=== PATIENT | female | born 1965 | race Caucasian/White ===

== ENCOUNTER 2021-11-14 20:19 | Observation (INO) | payer MEDICARE, OTHER ==
[2021-11-14] MEDS ORDERED: HumaLOG 300 UNITS/3 ML VIAL SC PRN ×4 (21:11→21:39)
[2021-11-14] MEDS ORDERED: Dextrose 5% in Water 1,000 ML IV PRN (21:11)
[2021-11-14] MEDS ORDERED: Dextrose 50% Abboject 50 ML SYRINGE SLOW IVP PRN (21:11)
[2021-11-14] MEDS ORDERED: hydrALAZINE 20 MG/ML VIAL SLOW IVP PRN (21:34)
[2021-11-14 22:42] LABS: Hemoglobin A1c 11.8 % (4.0-6.0)
[2021-11-15 00:01] LABS: Bacteria/HPF None Seen HPF (None Seen); Bilirubin Negative (Negative); Blood, Urine Trace (Negative); Clarity Clear (Clear); Glucose, Urine (Dipstick) >=1000 mg/dL (Negative); Ketone, Urine Negative (Negative); Leukocyte Negative Leu/uL (Negative); Nitrite Negative (Negative); Protein, Urine (Dipstick) 300 mg/dL (Neg-Trace); Squamous Epithelial None Seen HPF (0-3); Urobilinogen Normal mg/dL (Less than 2)
[2021-11-15 00:03] LABS: RBC/HPF 0-3 HPF (0-3)
[2021-11-15 00:27] LABS: Creatinine, Urine 33.61 mg/dL (47-110)
[2021-11-15 00:32] LABS: Microalbumin Urine Greater than 200.0 mg/dL (0.5-50.0)
[2021-11-15] MEDS: Acetaminophen 325 MG TAB PO PRN ×3 (02:12→13:47)
[2021-11-15 04:37] LABS: #Basophils 0.1 thou/uL (0.0-0.2); #Eosinphils 0.5 thou/uL (0.0-0.7); #Lymphocytes 1.4 thou/uL (1.20-3.40); #Monocytes 0.7 thou/uL (0.11-0.59); #Neutrophils 4.1 thou/uL (1.40-6.50); %Basophils 0.8 % (0.0-1.0); %Eosinophils 6.9 % (0.0-10.0); %Lymphocytes 20.5 % (21.0-51.0); %Monocytes 10.2 % (0.0-10.0); %Neutrophils 61.6 % (42.0-75.0); Mean Corpuscular HGB CONC 33.4 g/dL (32.0-36.0); Mean Corpuscular Hemoglobin 31.6 pg (27.0-31.0); Mean Corpuscular Volume 94.8 fL (78.0-98.0); Platelet Count 329 thou/uL (130-400); RBC Distribution Width 14.9 % (11.5-14.5); Red Blood Cell (RBC) Count 2.84 mill/uL (4.20-5.40); White Blood Cell (WBC) Count 6.6 thou/uL (4.8-10.8)
[2021-11-15 05:07] LABS: ALT (SGPT) 25 U/L (8-55); AST (SGOT) 26 U/L (5-34); Alkaline Phosphatase 368 U/L (40-110); Anion Gap 9 mmol/L (10-20); BUN (Urea Nitrogen) 22 mg/dL (9.8-20.1); Bilirubin, Total Less than 0.2 mg/dL (0.2-1.2); Calc. Creatinine Clearance 48 mL/min (70-130); Calcium 8.1 mg/dL (7.8-10.44); Carbon Dioxide 22 mmol/L (22-29); Chloride 111 mmol/L (98-107); Globulin 3.1 g/dL (2.4-3.5); Glucose 216 mg/dL (70-105); Potassium 3.7 mmol/L (3.5-5.1); Protein, Total 5.1 g/dL (6.0-8.3); Sodium 138 mmol/L (136-145)
[2021-11-15 07:01] LABS: Cardiac Risk 5.6 (Less than 4.5)
[2021-11-15] MEDS ORDERED: ADENOSINE 60 MG/20 ML VIAL ONE (08:29)
[2021-11-15] MEDS ORDERED: Enoxaparin Sodium 40 MG/0.4 ML SYRINGE SC SCH (09:00)
[2021-11-15 12:45] VITALS: BMI 26.4
[2021-11-15 13:59] VITALS: TEMP 97.3
[2021-11-15] MEDS ORDERED: Amlodipine 5 MG TAB PO SCH (14:00)
[2021-11-15 14:21] VITALS: BP 184/85
[2021-11-15 15:04] LABS: Iron 51 ug/dL (50-170); Iron Binding Capacity, Total 198 mcg/dL (265-497)
[2021-11-15 15:29] LABS: Ferritin 382.3 ng/mL (10-291)
[2021-11-15] MEDS ORDERED: Metoprolol Tartrate 50 MG TAB PO SCH (21:00)
== END 2021-11-15 16:20 | disposition home or self-care (01) ==
LOC: 2NO 20:22
PROVIDERS: ADMIT Family Medicine; ATTEND Family Medicine
DX: R07.89 Other chest pain (principal); R60.0 Localized edema; I12.9 Hypertensive chronic kidney disease with stage 1 through stage 4 chronic kidney disease, or unspecified chronic kidney disease; E11.22 Type 2 diabetes mellitus with diabetic chronic kidney disease; N18.32 Chronic kidney disease, stage 3b; D63.1 Anemia in chronic kidney disease; E78.5 Hyperlipidemia, unspecified; N28.1 Cyst of kidney, acquired; D18.03 Hemangioma of intra-abdominal structures; R30.0 Dysuria; R35.0 Frequency of micturition; E11.65 Type 2 diabetes mellitus with hyperglycemia; M41.9 Scoliosis, unspecified; I07.1 Rheumatic tricuspid insufficiency; Z79.2 Long term (current) use of antibiotics; Z79.82 Long term (current) use of aspirin; Z79.84 Long term (current) use of oral hypoglycemic drugs; Z79.899 Other long term (current) drug therapy
CPT/HCPCS: 78452; 80053; 80061; 82043; 82607; 82728; 82746; 82962 ×2; 83036; 83540; 83550; 84443; 85025; 87086; 93017; 93306; 93970; 96372; 96374; A9500; G0378 ×2; 36415; 36416; 81003; 81015; J0153; J0360; J1650

== ENCOUNTER 2022-05-15 19:09 | Inpatient (IN) | payer OTHER ==
[2022-05-15] MEDS ORDERED: Cyclobenzaprine 10 MG TAB PO PRN (20:58)
[2022-05-15] MEDS ORDERED: traMADol HCl 50 MG TAB PO PRN (20:58)
[2022-05-15] MEDS ORDERED: Promethazine HCl 25 MG/ML VIAL IM PRN (21:34)
[2022-05-15] MEDS ORDERED: Dextrose 50% Abboject 50 ML SYRINGE SLOW IVP PRN ×2 (21:34→23:03)
[2022-05-15] MEDS ORDERED: Morphine 2 MG/ML VIAL SLOW IVP PRN (21:34)
[2022-05-15] MEDS ORDERED: Dextrose 5% in Water 1,000 ML IV PRN ×2 (21:34→23:03)
[2022-05-15] MEDS: Gabapentin 300 MG CAP PO SCH (22:11)
[2022-05-15 22:24] VITALS: BMI 24.2
[2022-05-15] MEDS ORDERED: traMADol HCl 50 MG TAB PO SCH ×2 (23:15→23:59)
[2022-05-15] MEDS ORDERED: hydrALAZINE 20 MG/ML VIAL SLOW IVP SCH (23:15)
[2022-05-15] MEDS: traMADol HCl 50 MG TAB PO SCH (23:54)
[2022-05-15] MEDS: Acetaminophen 500 MG TAB PO SCH (23:55)
[2022-05-15] MEDS ORDERED: hydrALAZINE 20 MG/ML VIAL SLOW IVP PRN (23:56)
[2022-05-16] MEDS ORDERED: Amlodipine 10 MG TAB PO SCH (00:15)
[2022-05-16] MEDS ORDERED: Furosemide 20 MG/2 ML VIAL SLOW IVP SCH (00:15)
[2022-05-16 01:48] LABS: Bacteria/HPF None Seen HPF (None Seen); Bilirubin Negative (Negative); Blood, Urine 1+ (Negative); Clarity Clear (Clear); Glucose, Urine (Dipstick) 500 mg/dL (Negative); Ketone, Urine Negative (Negative); Leukocyte Negative Leu/uL (Negative); Nitrite Negative (Negative); Protein, Urine (Dipstick) 300 mg/dL (Neg-Trace); RBC/HPF 0-3 HPF (0-3); Specific Gravity, Urine 1.012 (1.002-1.036); Squamous Epithelial None Seen HPF (0-3); Urobilinogen Normal mg/dL (Less than 2); WBC/HPF 0-3 HPF (0-3); pH, Urine 6.5 (5.0-9.0)
[2022-05-16 01:51] LABS: Urine Culture Reflex No No
[2022-05-16 05:38] LABS: #Basophils 0.1 thou/uL (0.0-0.2); #Eosinphils 0.2 thou/uL (0.0-0.7); #Lymphocytes 1.5 thou/uL (1.20-3.40); #Monocytes 0.7 thou/uL (0.11-0.59); #Neutrophils 5.3 thou/uL (1.40-6.50); %Basophils 0.8 % (0.0-1.0); %Eosinophils 2.8 % (0.0-10.0); %Lymphocytes 19.7 % (21.0-51.0); %Monocytes 9.1 % (0.0-10.0); %Neutrophils 67.5 % (42.0-75.0); Hemoglobin 9.8 g/dL (12.0-16.0); Mean Corpuscular HGB CONC 33.5 g/dL (32.0-36.0); Mean Corpuscular Hemoglobin 32.1 pg (27.0-31.0); Mean Corpuscular Volume 95.8 fL (78.0-98.0); Mean Platelet Volume 8.7 fL (7.4-10.4); Platelet Count 307 thou/uL (130-400); RBC Distribution Width 15.8 % (11.5-14.5); Red Blood Cell (RBC) Count 3.05 mill/uL (4.20-5.40); White Blood Cell (WBC) Count 7.8 thou/uL (4.8-10.8)
[2022-05-16 05:47] LABS: Anion Gap 13 mmol/L (10-20); BUN (Urea Nitrogen) 41 mg/dL (9.8-20.1); Calc. Creatinine Clearance 29 mL/min (70-130); Calcium 7.8 mg/dL (7.8-10.44); Carbon Dioxide 18 mmol/L (22-29); Chloride 110 mmol/L (98-107); Estimated GFR 27; Glucose 152 mg/dL (70-105); Phosphorus 4.6 mg/dL (2.3-4.7); Potassium 3.9 mmol/L (3.5-5.1); Sodium 137 mmol/L (136-145)
[2022-05-16] MEDS: Acetaminophen 500 MG TAB PO SCH ×3 (05:51→17:17)
[2022-05-16] MEDS: traMADol HCl 50 MG TAB PO SCH ×3 (05:52→21:08)
[2022-05-16] MEDS: Metoprolol Tartrate 50 MG TAB PO SCH ×2 (08:02→21:08)
[2022-05-16] MEDS: Furosemide 20 MG TAB PO SCH ×2 (08:02→21:07)
[2022-05-16] MEDS: Senokot S 8.6-50 MG TAB PO SCH ×2 (08:02→21:08)
[2022-05-16] MEDS: Gabapentin 300 MG CAP PO SCH (08:02)
[2022-05-16] MEDS: Ascorbic Acid 500 mg Chewable Tablet PO SCH ×2 (08:02→21:07)
[2022-05-16] MEDS: Ferrous Sulfate 325 MG TAB PO SCH ×2 (08:02→17:17)
[2022-05-16] MEDS: Polyethylene Glycol 3350 17 GM Packet PO SCH (08:03)
[2022-05-16] MEDS: Pantoprazole 40 MG VIAL IVP SCH (08:03)
[2022-05-16] MEDS ORDERED: Lisinopril 5 MG TAB PO SCH (09:00)
[2022-05-16] MEDS ORDERED: Amlodipine 5 MG TAB PO SCH (09:00)
[2022-05-16] MEDS ORDERED: Famotidine 20 MG TAB PO SCH (09:00)
[2022-05-16] MEDS ORDERED: Metoprolol Tartrate 50 MG TAB PO SCH (09:00)
[2022-05-16] MEDS: Gabapentin 100 MG CAP PO SCH ×3 (09:16→21:07)
[2022-05-16 11:05] LABS: SARS-CoV-2 NAA Rapid Test DETECTED (NotDetected)
[2022-05-16] MEDS: cloNIDine 0.1 MG TAB PO SCH ×2 (12:42→17:17)
[2022-05-16] MEDS: Ondansetron PF 4 MG/2 ML Vial IVP PRN (21:04)
[2022-05-16] MEDS: Atorvastatin Calcium 40 MG TAB PO SCH (21:07)
[2022-05-17] MEDS: Acetaminophen 500 MG TAB PO SCH ×4 (00:01→17:22)
[2022-05-17] MEDS: cloNIDine 0.1 MG TAB PO SCH ×4 (00:02→17:12)
[2022-05-17] MEDS: traMADol HCl 50 MG TAB PO SCH ×3 (06:22→21:58)
[2022-05-17 07:02] LABS: Hemoglobin 10.8 g/dL (12.0-16.0)
[2022-05-17 07:26] LABS: Anion Gap 13 mmol/L (10-20); BUN (Urea Nitrogen) 43 mg/dL (9.8-20.1); Calc. Creatinine Clearance 28 mL/min (70-130); Carbon Dioxide 17 mmol/L (22-29); Chloride 106 mmol/L (98-107); Estimated GFR 26; Glucose 134 mg/dL (70-105); Phosphorus 5.4 mg/dL (2.3-4.7); Potassium 4.5 mmol/L (3.5-5.1); Sodium 131 mmol/L (136-145)
[2022-05-17] MEDS ORDERED: Lidocaine 1% 50ML VIAL IJ SCH (07:45)
[2022-05-17] MEDS: Ascorbic Acid 500 mg Chewable Tablet PO SCH ×2 (08:34→21:58)
[2022-05-17] MEDS: Senokot S 8.6-50 MG TAB PO SCH (08:34)
[2022-05-17] MEDS: Metoprolol Tartrate 50 MG TAB PO SCH ×2 (08:34→22:00)
[2022-05-17] MEDS: Furosemide 20 MG TAB PO SCH ×2 (08:34→22:02)
[2022-05-17] MEDS: Gabapentin 100 MG CAP PO SCH ×3 (08:34→21:59)
[2022-05-17] MEDS: Ferrous Sulfate 325 MG TAB PO SCH ×2 (08:34→17:22)
[2022-05-17] MEDS: Pantoprazole 40 MG VIAL IVP SCH (08:35)
[2022-05-17] MEDS: Polyethylene Glycol 3350 17 GM Packet PO SCH (08:35)
[2022-05-17] MEDS ORDERED: Sodium Chloride 0.9% 1,000 ML IV SCH (09:15)
[2022-05-17] MEDS: Heparin 5,000 UNITS/ML VIAL SC SCH ×2 (14:34→21:59)
[2022-05-17] MEDS: Atorvastatin Calcium 40 MG TAB PO SCH (21:58)
[2022-05-17 23:27] LABS: Bilirubin Negative (Negative); Blood, Urine 1+ (Negative); Clarity Turbid (Clear); Glucose, Urine (Dipstick) 200 mg/dL (Negative); Ketone, Urine Negative (Negative); Leukocyte Negative Leu/uL (Negative); Nitrite Negative (Negative); Protein, Urine (Dipstick) 600 mg/dL (Neg-Trace); RBC/HPF 0-3 HPF (0-3); Specific Gravity, Urine 1.022 (1.002-1.036); Squamous Epithelial None Seen HPF (0-3); Urobilinogen Normal mg/dL (Less than 2); WBC/HPF 0-3 HPF (0-3)
[2022-05-17 23:38] LABS: Bacteria/HPF Rare-Few HPF (None Seen)
[2022-05-17 23:40] LABS: Urine Culture Reflex No No
[2022-05-18] MEDS: Senokot S 8.6-50 MG TAB PO SCH ×3 (00:45→20:47)
[2022-05-18] MEDS: cloNIDine 0.1 MG TAB PO SCH ×4 (00:45→17:49)
[2022-05-18] MEDS: Acetaminophen 500 MG TAB PO SCH ×4 (00:46→17:48)
[2022-05-18] MEDS ORDERED: Sodium Chloride 0.9% 1,000 ML IV SCH (01:00)
[2022-05-18] MEDS: traMADol HCl 50 MG TAB PO SCH ×3 (06:28→22:36)
[2022-05-18 06:30] LABS: Anion Gap 15 mmol/L (10-20); BUN (Urea Nitrogen) 48 mg/dL (9.8-20.1); Calc. Creatinine Clearance 25 mL/min (70-130); Calcium 8.1 mg/dL (7.8-10.44); Carbon Dioxide 12 mmol/L (22-29); Chloride 107 mmol/L (98-107); Estimated GFR 22; Glucose 103 mg/dL (70-105); Magnesium 2.1 mg/dL (1.6-2.6); Phosphorus 5.9 mg/dL (2.3-4.7); Potassium 5.1 mmol/L (3.5-5.1); Sodium 129 mmol/L (136-145)
[2022-05-18 06:35] LABS: Hemoglobin 11.2 g/dL (12.0-16.0); Mean Corpuscular HGB CONC 34.2 g/dL (32.0-36.0); Mean Corpuscular Hemoglobin 33.2 pg (27.0-31.0); Mean Corpuscular Volume 97.2 fL (78.0-98.0); Mean Platelet Volume 9.1 fL (7.4-10.4); Platelet Count 305 thou/uL (130-400); RBC Distribution Width 16.6 % (11.5-14.5); Red Blood Cell (RBC) Count 3.37 mill/uL (4.20-5.40); White Blood Cell (WBC) Count 9.2 thou/uL (4.8-10.8)
[2022-05-18 07:31] LABS: Band 16 % (5-11); Eosinophils 2 % (0-10); Lymphocytes 18 % (21-51); MDiff Complete? YES; Monocytes 5 % (0-10); Neutrophil 59 % (42-75); Platelet Morphology Comment Appears Adequate; Polychromasia SLIGHT = 2-3 cells (100X) (0-2/hpf)
[2022-05-18] MEDS: Polyethylene Glycol 3350 17 GM Packet PO SCH (08:12)
[2022-05-18] MEDS: Ferrous Sulfate 325 MG TAB PO SCH ×2 (08:12→17:48)
[2022-05-18] MEDS: Metoprolol Tartrate 50 MG TAB PO SCH ×2 (08:13→21:41)
[2022-05-18] MEDS: Ascorbic Acid 500 mg Chewable Tablet PO SCH ×2 (08:14→20:47)
[2022-05-18] MEDS: Gabapentin 100 MG CAP PO SCH ×3 (08:14→20:47)
[2022-05-18] MEDS: Heparin 5,000 UNITS/ML VIAL SC SCH ×3 (08:14→20:47)
[2022-05-18] MEDS ORDERED: Furosemide 40 MG/4 ML VIAL SLOW IVP SCH (09:00)
[2022-05-18 18:15] LABS: Chloride 107 mmol/L (98-107); Sodium 131 mmol/L (136-145)
[2022-05-18 18:16] LABS: Calcium 7.6 mg/dL (7.8-10.44); Glucose 91 mg/dL (70-105)
[2022-05-18 18:18] LABS: Anion Gap 15 mmol/L (10-20); Carbon Dioxide 14 mmol/L (22-29)
[2022-05-18 18:19] LABS: Calc. Creatinine Clearance 23 mL/min (70-130); Estimated GFR 20
[2022-05-18 18:20] LABS: BUN (Urea Nitrogen) 50 mg/dL (9.8-20.1)
[2022-05-18] MEDS: Atorvastatin Calcium 40 MG TAB PO SCH (20:47)
[2022-05-19] MEDS: cloNIDine 0.1 MG TAB PO SCH ×4 (00:34→17:43)
[2022-05-19] MEDS: Acetaminophen 500 MG TAB PO SCH ×4 (00:36→17:44)
[2022-05-19] MEDS: traMADol HCl 50 MG TAB PO SCH ×3 (06:05→21:36)
[2022-05-19] MEDS: Albuterol 200 PUFF (6.7GM INHALER) INH SCH ×6 (06:06→17:44)
[2022-05-19] MEDS ORDERED: Albuterol 200 PUFF (6.7GM INHALER) INH PRN (06:18)
[2022-05-19 06:48] LABS: Anion Gap 13 mmol/L (10-20); BUN (Urea Nitrogen) 50 mg/dL (9.8-20.1); Calc. Creatinine Clearance 22 mL/min (70-130); Calcium 7.6 mg/dL (7.8-10.44); Carbon Dioxide 18 mmol/L (22-29); Chloride 103 mmol/L (98-107); Estimated GFR 19; Glucose 88 mg/dL (70-105); Magnesium 2.1 mg/dL (1.6-2.6); Phosphorus 5.9 mg/dL (2.3-4.7); Potassium 4.7 mmol/L (3.5-5.1); Sodium 129 mmol/L (136-145)
[2022-05-19 07:16] LABS: #Eosinphils 0.3 thou/uL (0.0-0.7); #Lymphocytes 1.4 thou/uL (1.20-3.40); #Monocytes 0.9 thou/uL (0.11-0.59); #Neutrophils 6.7 thou/uL (1.40-6.50); %Basophils 0.1 % (0.0-1.0); %Eosinophils 3.3 % (0.0-10.0); %Lymphocytes 14.9 % (21.0-51.0); %Monocytes 9.6 % (0.0-10.0); %Neutrophils 72.2 % (42.0-75.0); Hemoglobin 10.3 g/dL (12.0-16.0); Mean Corpuscular HGB CONC 32.4 g/dL (32.0-36.0); Mean Corpuscular Hemoglobin 31.5 pg (27.0-31.0); Mean Corpuscular Volume 97.2 fL (78.0-98.0); Mean Platelet Volume 9.2 fL (7.4-10.4); Platelet Count 320 thou/uL (130-400); RBC Distribution Width 16.3 % (11.5-14.5); Red Blood Cell (RBC) Count 3.27 mill/uL (4.20-5.40); White Blood Cell (WBC) Count 9.3 thou/uL (4.8-10.8)
[2022-05-19] MEDS: Senokot S 8.6-50 MG TAB PO SCH ×2 (08:25→21:36)
[2022-05-19] MEDS: Metoprolol Tartrate 50 MG TAB PO SCH ×2 (08:25→21:37)
[2022-05-19] MEDS: Polyethylene Glycol 3350 17 GM Packet PO SCH (08:25)
[2022-05-19] MEDS: Ferrous Sulfate 325 MG TAB PO SCH (08:25)
[2022-05-19] MEDS: Gabapentin 100 MG CAP PO SCH ×3 (08:25→21:36)
[2022-05-19] MEDS: Furosemide 20 MG TAB PO SCH ×2 (08:25→21:37)
[2022-05-19] MEDS: Heparin 5,000 UNITS/ML VIAL SC SCH ×3 (08:25→21:52)
[2022-05-19] MEDS: Ascorbic Acid 500 mg Chewable Tablet PO SCH (08:26)
[2022-05-19] MEDS: Ondansetron PF 4 MG/2 ML Vial IVP PRN (11:57)
[2022-05-19] MEDS: Atorvastatin Calcium 40 MG TAB PO SCH (21:35)
[2022-05-20] MEDS: cloNIDine 0.1 MG TAB PO SCH ×4 (00:31→18:47)
[2022-05-20] MEDS: Acetaminophen 500 MG TAB PO SCH ×4 (00:31→18:42)
[2022-05-20] MEDS: Albuterol 200 PUFF (6.7GM INHALER) INH SCH ×6 (03:15→22:03)
[2022-05-20 05:23] LABS: #Eosinphils 0.2 thou/uL (0.0-0.7); #Lymphocytes 1.1 thou/uL (1.20-3.40); #Monocytes 0.7 thou/uL (0.11-0.59); #Neutrophils 6.4 thou/uL (1.40-6.50); %Basophils 0.4 % (0.0-1.0); %Eosinophils 2.7 % (0.0-10.0); %Lymphocytes 13.4 % (21.0-51.0); %Monocytes 7.8 % (0.0-10.0); %Neutrophils 75.7 % (42.0-75.0); Hemoglobin 8.7 g/dL (12.0-16.0); Mean Corpuscular HGB CONC 32.9 g/dL (32.0-36.0); Mean Corpuscular Hemoglobin 31.8 pg (27.0-31.0); Mean Corpuscular Volume 96.6 fL (78.0-98.0); Platelet Count 289 thou/uL (130-400); RBC Distribution Width 16.4 % (11.5-14.5); Red Blood Cell (RBC) Count 2.75 mill/uL (4.20-5.40); White Blood Cell (WBC) Count 8.5 thou/uL (4.8-10.8)
[2022-05-20 06:00] LABS: Anion Gap 13 mmol/L (10-20); BUN (Urea Nitrogen) 51 mg/dL (9.8-20.1); Calc. Creatinine Clearance 21 mL/min (70-130); Calcium 7.3 mg/dL (7.8-10.44); Carbon Dioxide 16 mmol/L (22-29); Chloride 105 mmol/L (98-107); Estimated GFR 18; Glucose 100 mg/dL (70-105); Phosphorus 5.7 mg/dL (2.3-4.7); Potassium 4.1 mmol/L (3.5-5.1); Sodium 130 mmol/L (136-145)
[2022-05-20] MEDS: traMADol HCl 50 MG TAB PO SCH ×3 (06:16→22:03)
[2022-05-20] MEDS ORDERED: Sodium Bicarbonate 150 MEQ in Dextrose 5% in Water 1,000 ML IV SCH ×3 (08:45→11:15)
[2022-05-20] MEDS: Gabapentin 100 MG CAP PO SCH ×3 (09:40→22:03)
[2022-05-20] MEDS: Senokot S 8.6-50 MG TAB PO SCH ×2 (09:40→22:02)
[2022-05-20] MEDS: Polyethylene Glycol 3350 17 GM Packet PO SCH (09:40)
[2022-05-20] MEDS: Ferrous Sulfate 325 MG TAB PO SCH (09:41)
[2022-05-20] MEDS: Metoprolol Tartrate 50 MG TAB PO SCH ×2 (09:42→22:03)
[2022-05-20] MEDS: Heparin 5,000 UNITS/ML VIAL SC SCH ×3 (09:42→22:02)
[2022-05-20] MEDS: Ascorbic Acid 500 mg Chewable Tablet PO SCH (09:42)
[2022-05-20 17:31] LABS: Anion Gap 15 mmol/L (10-20); BUN (Urea Nitrogen) 48 mg/dL (9.8-20.1); Calc. Creatinine Clearance 21 mL/min (70-130); Calcium 7.2 mg/dL (7.8-10.44); Carbon Dioxide 19 mmol/L (22-29); Chloride 103 mmol/L (98-107); Estimated GFR 18; Glucose 127 mg/dL (70-105); Sodium 133 mmol/L (136-145)
[2022-05-20] MEDS: Atorvastatin Calcium 40 MG TAB PO SCH (22:02)
[2022-05-21] MEDS: Acetaminophen 500 MG TAB PO SCH ×5 (00:13→23:12)
[2022-05-21] MEDS: cloNIDine 0.1 MG TAB PO SCH ×5 (00:14→23:12)
[2022-05-21] MEDS: Albuterol 200 PUFF (6.7GM INHALER) INH SCH ×6 (03:45→22:30)
[2022-05-21] MEDS: traMADol HCl 50 MG TAB PO SCH ×3 (06:14→22:30)
[2022-05-21 06:36] LABS: Band 9 % (5-11); Eosinophils 3 % (0-10); Hemoglobin 11.2 g/dL (12.0-16.0); Lymphocytes 7 % (21-51); MDiff Complete? YES; Mean Corpuscular HGB CONC 32.5 g/dL (32.0-36.0); Mean Corpuscular Hemoglobin 32.8 pg (27.0-31.0); Mean Platelet Volume 9.4 fL (7.4-10.4); Monocytes 10 % (0-10); Neutrophil 71 % (42-75); Platelet Count 267 thou/uL (130-400); RBC Distribution Width 16.7 % (11.5-14.5); Red Blood Cell (RBC) Count 3.42 mill/uL (4.20-5.40); White Blood Cell (WBC) Count 9.3 thou/uL (4.8-10.8)
[2022-05-21 07:01] LABS: Anion Gap 16 mmol/L (10-20); BUN (Urea Nitrogen) 48 mg/dL (9.8-20.1); Calc. Creatinine Clearance 21 mL/min (70-130); Calcium 7.6 mg/dL (7.8-10.44); Carbon Dioxide 12 mmol/L (22-29); Chloride 107 mmol/L (98-107); Estimated GFR 18; Glucose 120 mg/dL (70-105); Magnesium 2.2 mg/dL (1.6-2.6); Phosphorus 5.7 mg/dL (2.3-4.7); Sodium 130 mmol/L (136-145)
[2022-05-21] MEDS: Senokot S 8.6-50 MG TAB PO SCH ×2 (08:26→22:25)
[2022-05-21] MEDS: Heparin 5,000 UNITS/ML VIAL SC SCH ×3 (08:26→22:26)
[2022-05-21] MEDS: Ferrous Sulfate 325 MG TAB PO SCH (08:26)
[2022-05-21] MEDS: Polyethylene Glycol 3350 17 GM Packet PO SCH (08:27)
[2022-05-21] MEDS: Gabapentin 100 MG CAP PO SCH ×3 (08:27→22:30)
[2022-05-21] MEDS: Metoprolol Tartrate 50 MG TAB PO SCH ×2 (08:27→22:26)
[2022-05-21] MEDS: Ascorbic Acid 500 mg Chewable Tablet PO SCH (08:27)
[2022-05-21] MEDS ORDERED: Sodium Bicarbonate 150 MEQ in Dextrose 5% in Water 1,000 ML IV SCH (11:30)
[2022-05-21] MEDS: Furosemide 20 MG TAB PO SCH (13:36)
[2022-05-21] MEDS: Atorvastatin Calcium 40 MG TAB PO SCH (22:26)
[2022-05-22] MEDS: Albuterol 200 PUFF (6.7GM INHALER) INH SCH ×6 (02:29→21:12)
[2022-05-22] MEDS: traMADol HCl 50 MG TAB PO SCH ×3 (06:06→21:05)
[2022-05-22] MEDS: Acetaminophen 500 MG TAB PO SCH ×3 (06:07→17:22)
[2022-05-22] MEDS: cloNIDine 0.1 MG TAB PO SCH ×3 (06:08→17:24)
[2022-05-22 06:16] LABS: #Eosinphils 0.3 thou/uL (0.0-0.7); #Lymphocytes 1.4 thou/uL (1.20-3.40); #Monocytes 0.6 thou/uL (0.11-0.59); #Neutrophils 7.5 thou/uL (1.40-6.50); %Basophils 0.1 % (0.0-1.0); %Eosinophils 3.2 % (0.0-10.0); %Lymphocytes 14.1 % (21.0-51.0); %Monocytes 6.6 % (0.0-10.0); Hemoglobin 9.8 g/dL (12.0-16.0); Mean Corpuscular HGB CONC 32.7 g/dL (32.0-36.0); Mean Corpuscular Hemoglobin 31.8 pg (27.0-31.0); Mean Corpuscular Volume 97.2 fL (78.0-98.0); Mean Platelet Volume 9.3 fL (7.4-10.4); Platelet Count 365 thou/uL (130-400); RBC Distribution Width 16.6 % (11.5-14.5); Red Blood Cell (RBC) Count 3.08 mill/uL (4.20-5.40); White Blood Cell (WBC) Count 9.8 thou/uL (4.8-10.8)
[2022-05-22 06:26] LABS: Anion Gap 14 mmol/L (10-20); BUN (Urea Nitrogen) 46 mg/dL (9.8-20.1); Calc. Creatinine Clearance 23 mL/min (70-130); Calcium 7.5 mg/dL (7.8-10.44); Carbon Dioxide 21 mmol/L (22-29); Chloride 102 mmol/L (98-107); Estimated GFR 20; Glucose 107 mg/dL (70-105); Magnesium 1.9 mg/dL (1.6-2.6); Phosphorus 5.3 mg/dL (2.3-4.7); Potassium 4.1 mmol/L (3.5-5.1); Sodium 133 mmol/L (136-145)
[2022-05-22] MEDS: Sodium Bicarbonate 150 MEQ in Dextrose 5% in Water 1,000 ML IV SCH (06:53)
[2022-05-22] MEDS ORDERED: Magnesium 2 GM/50 ML(in water) 2 GM in Premix Bag 1 BAG IVPB SCH (09:00)
[2022-05-22] MEDS: Ascorbic Acid 500 mg Chewable Tablet PO SCH (10:20)
[2022-05-22] MEDS: Ferrous Sulfate 325 MG TAB PO SCH (10:20)
[2022-05-22] MEDS: Gabapentin 100 MG CAP PO SCH ×3 (10:21→21:07)
[2022-05-22] MEDS: Heparin 5,000 UNITS/ML VIAL SC SCH ×3 (10:22→21:09)
[2022-05-22] MEDS: Metoprolol Tartrate 50 MG TAB PO SCH ×3 (10:23→21:11)
[2022-05-22] MEDS: Polyethylene Glycol 3350 17 GM Packet PO SCH (10:24)
[2022-05-22] MEDS: Senokot S 8.6-50 MG TAB PO SCH ×2 (10:24→21:08)
[2022-05-22] MEDS: Atorvastatin Calcium 40 MG TAB PO SCH (21:06)
[2022-05-23] MEDS: Acetaminophen 500 MG TAB PO SCH ×5 (00:44→23:38)
[2022-05-23] MEDS: cloNIDine 0.1 MG TAB PO SCH ×5 (00:46→23:38)
[2022-05-23] MEDS: Sodium Bicarbonate 150 MEQ in Dextrose 5% in Water 1,000 ML IV SCH (02:12)
[2022-05-23] MEDS: Albuterol 200 PUFF (6.7GM INHALER) INH SCH ×6 (02:21→22:30)
[2022-05-23] MEDS: traMADol HCl 50 MG TAB PO SCH ×3 (06:00→21:02)
[2022-05-23 06:41] LABS: #Eosinphils 0.2 thou/uL (0.0-0.7); #Lymphocytes 1.3 thou/uL (1.20-3.40); #Monocytes 0.7 thou/uL (0.11-0.59); #Neutrophils 6.7 thou/uL (1.40-6.50); %Basophils 0.3 % (0.0-1.0); %Eosinophils 2.3 % (0.0-10.0); %Lymphocytes 14.5 % (21.0-51.0); %Monocytes 7.5 % (0.0-10.0); %Neutrophils 75.3 % (42.0-75.0); Hemoglobin 8.8 g/dL (12.0-16.0); Mean Corpuscular HGB CONC 32.7 g/dL (32.0-36.0); Mean Platelet Volume 9.7 fL (7.4-10.4); Platelet Count 308 thou/uL (130-400); RBC Distribution Width 17.2 % (11.5-14.5); Red Blood Cell (RBC) Count 2.76 mill/uL (4.20-5.40); White Blood Cell (WBC) Count 8.9 thou/uL (4.8-10.8)
[2022-05-23 08:13] LABS: Anion Gap 13 mmol/L (10-20); BUN (Urea Nitrogen) 46 mg/dL (9.8-20.1); Calc. Creatinine Clearance 24 mL/min (70-130); Calcium 7.2 mg/dL (7.8-10.44); Carbon Dioxide 21 mmol/L (22-29); Chloride 99 mmol/L (98-107); Estimated GFR 21; Glucose 163 mg/dL (70-105); Magnesium 1.9 mg/dL (1.6-2.6); Phosphorus 5.5 mg/dL (2.3-4.7); Potassium 3.9 mmol/L (3.5-5.1); Sodium 129 mmol/L (136-145)
[2022-05-23] MEDS: Polyethylene Glycol 3350 17 GM Packet PO SCH (11:02)
[2022-05-23] MEDS: Senokot S 8.6-50 MG TAB PO SCH ×2 (11:02→21:01)
[2022-05-23] MEDS: Ascorbic Acid 500 mg Chewable Tablet PO SCH (11:15)
[2022-05-23] MEDS: Sodium Chloride 1 GM TAB PO SCH ×2 (11:15→21:03)
[2022-05-23] MEDS: Ferrous Sulfate 325 MG TAB PO SCH (11:15)
[2022-05-23] MEDS: Gabapentin 100 MG CAP PO SCH ×3 (11:16→21:02)
[2022-05-23] MEDS: Metoprolol Tartrate 50 MG TAB PO SCH ×2 (11:17→21:03)
[2022-05-23] MEDS: Heparin 5,000 UNITS/ML VIAL SC SCH ×3 (11:17→21:03)
[2022-05-23] MEDS: Ondansetron PF 4 MG/2 ML Vial IVP PRN (11:33)
[2022-05-23] MEDS: HumaLOG 300 UNITS/3 ML VIAL SC PRN ×2 (14:13→18:10)
[2022-05-23] MEDS: Atorvastatin Calcium 40 MG TAB PO SCH (21:03)
[2022-05-24] MEDS: Albuterol 200 PUFF (6.7GM INHALER) INH SCH ×2 (02:45→06:59)
[2022-05-24] MEDS: Acetaminophen 500 MG TAB PO SCH ×2 (06:02→11:13)
[2022-05-24] MEDS: cloNIDine 0.1 MG TAB PO SCH ×2 (06:02→11:13)
[2022-05-24] MEDS: traMADol HCl 50 MG TAB PO SCH (06:02)
[2022-05-24 06:14] LABS: #Eosinphils 0.2 thou/uL (0.0-0.7); #Lymphocytes 1.6 thou/uL (1.20-3.40); #Monocytes 0.8 thou/uL (0.11-0.59); #Neutrophils 7.4 thou/uL (1.40-6.50); %Eosinophils 2.3 % (0.0-10.0); %Monocytes 8.3 % (0.0-10.0); %Neutrophils 73.4 % (42.0-75.0); Hemoglobin 10.2 g/dL (12.0-16.0); Mean Corpuscular HGB CONC 32.8 g/dL (32.0-36.0); Mean Corpuscular Hemoglobin 31.7 pg (27.0-31.0); Mean Corpuscular Volume 96.6 fL (78.0-98.0); Mean Platelet Volume 9.1 fL (7.4-10.4); Platelet Count 356 thou/uL (130-400); RBC Distribution Width 16.6 % (11.5-14.5); White Blood Cell (WBC) Count 10.1 thou/uL (4.8-10.8)
[2022-05-24 06:30] LABS: Anion Gap 14 mmol/L (10-20); BUN (Urea Nitrogen) 44 mg/dL (9.8-20.1); Calc. Creatinine Clearance 25 mL/min (70-130); Calcium 7.3 mg/dL (7.8-10.44); Carbon Dioxide 22 mmol/L (22-29); Chloride 98 mmol/L (98-107); Estimated GFR 22; Glucose 127 mg/dL (70-105); Magnesium 1.8 mg/dL (1.6-2.6); Phosphorus 5.4 mg/dL (2.3-4.7); Potassium 3.8 mmol/L (3.5-5.1); Sodium 130 mmol/L (136-145)
[2022-05-24 08:44] VITALS: TEMP 97.7
[2022-05-24] MEDS: Heparin 5,000 UNITS/ML VIAL SC SCH (08:45)
[2022-05-24] MEDS: Ferrous Sulfate 325 MG TAB PO SCH (08:45)
[2022-05-24] MEDS: Ascorbic Acid 500 mg Chewable Tablet PO SCH (08:45)
[2022-05-24] MEDS: Sodium Chloride 1 GM TAB PO SCH (08:45)
[2022-05-24] MEDS: Gabapentin 100 MG CAP PO SCH (08:45)
[2022-05-24] MEDS: Metoprolol Tartrate 50 MG TAB PO SCH (08:45)
[2022-05-24] MEDS: Polyethylene Glycol 3350 17 GM Packet PO SCH (08:46)
[2022-05-24] MEDS: Senokot S 8.6-50 MG TAB PO SCH (08:46)
[2022-05-24 11:14] VITALS: BP 150/98
== END 2022-05-24 12:10 | disposition swing bed (61) | DRG 199 ==
LOC: SURG A 19:09
PROVIDERS: ADMIT Surgery; ATTEND Surgery
PROC: 8E0ZXY6 Isolation (ICD-10-PCS; 2022-05-15)
PROC: 0W9B30Z Drainage of Left Pleural Cavity with Drainage Device, Percutaneous Approach (ICD-10-PCS; principal; 2022-05-17)
DX: S27.2XXA Traumatic hemopneumothorax, initial encounter (principal); J96.01 Acute respiratory failure with hypoxia; U07.1 COVID-19; S22.42XA Multiple fractures of ribs, left side, initial encounter for closed fracture; N17.9 Acute kidney failure, unspecified; I13.0 Hypertensive heart and chronic kidney disease with heart failure and stage 1 through stage 4 chronic kidney disease, or unspecified chronic kidney disease; S27.321A Contusion of lung, unilateral, initial encounter; E87.1 Hypo-osmolality and hyponatremia; E87.2 Acidosis; J91.8 Pleural effusion in other conditions classified elsewhere; I50.32 Chronic diastolic (congestive) heart failure; E78.5 Hyperlipidemia, unspecified; E11.22 Type 2 diabetes mellitus with diabetic chronic kidney disease; N18.9 Chronic kidney disease, unspecified; D63.1 Anemia in chronic kidney disease; W01.0XXA Fall on same level from slipping, tripping and stumbling without subsequent striking against object, initial encounter; F11.10 Opioid abuse, uncomplicated; G89.29 Other chronic pain; N28.1 Cyst of kidney, acquired; J98.4 Other disorders of lung; Z79.899 Other long term (current) drug therapy; Z79.82 Long term (current) use of aspirin; Z79.84 Long term (current) use of oral hypoglycemic drugs; Z90.710 Acquired absence of both cervix and uterus; Z98.890 Other specified postprocedural states; Z90.89 Acquired absence of other organs; Z87.442 Personal history of urinary calculi
CPT/HCPCS: 36415; 36416; 71045; 80048; 81001; 83735; 83880; 84100; 85014; 85018; 85025; C9113; J0360; J1644; J1815; J1940; J2270; J2405; J3475; J3490; J7050; J7070; P9045; U0002

== ENCOUNTER 2022-05-25 16:45 | Inpatient (IN) | payer OTHER ==
[2022-05-25 18:16] VITALS: BMI 26.4
[2022-05-25] MEDS ORDERED: Dextrose 50% Abboject 50 ML SYRINGE SLOW IVP PRN (19:13)
[2022-05-25] MEDS ORDERED: Dextrose 5% in Water 1,000 ML IV PRN (19:13)
[2022-05-25] MEDS ORDERED: HumaLOG 300 UNITS/3 ML VIAL SC PRN (19:13)
[2022-05-25] MEDS ORDERED: Cyclobenzaprine 10 MG TAB PO PRN (19:28)
[2022-05-25] MEDS ORDERED: Albuterol 200 PUFF (6.7GM INHALER) INH PRN (19:28)
[2022-05-25] MEDS ORDERED: Furosemide 20 MG/2 ML VIAL SLOW IVP SCH (20:00)
[2022-05-25] MEDS: Gabapentin 100 MG CAP PO SCH (22:03)
[2022-05-25] MEDS: Atorvastatin Calcium 40 MG TAB PO SCH (22:03)
[2022-05-25] MEDS: Acetaminophen 500 MG TAB PO SCH (22:03)
[2022-05-25] MEDS: Metoprolol Tartrate 50 MG TAB PO SCH (22:03)
[2022-05-25] MEDS: Sodium Chloride 1 GM TAB PO SCH (22:04)
[2022-05-25] MEDS: Insulin Glargine 30 UNITS/0.3 ML VIAL SC SCH (22:04)
[2022-05-25] MEDS: cloNIDine 0.1 MG TAB PO SCH (22:04)
[2022-05-26 02:19] LABS: Bacteria/HPF None Seen HPF (None Seen); Bilirubin Negative (Negative); Blood, Urine 1+ (Negative); Clarity Clear (Clear); Glucose, Urine (Dipstick) 70 mg/dL (Negative); Ketone, Urine Negative (Negative); Leukocyte 75 Leu/uL (Negative); Nitrite Negative (Negative); Protein, Urine (Dipstick) 200 mg/dL (Neg-Trace); Squamous Epithelial 0-3 HPF (0-3); Urobilinogen Normal mg/dL (Less than 2); Yeast-Budding 1+ HPF (None Seen)
[2022-05-26 02:30] LABS: Creatinine, Urine 40.65 mg/dL (47-110)
[2022-05-26 07:23] LABS: Anion Gap 17 mmol/L (10-20); BUN (Urea Nitrogen) 46 mg/dL (9.8-20.1); Calc. Creatinine Clearance 25 mL/min (70-130); Calcium 7.7 mg/dL (7.8-10.44); Carbon Dioxide 17 mmol/L (22-29); Chloride 101 mmol/L (98-107); Estimated GFR 20; Glucose 69 mg/dL (70-105); Potassium 4.6 mmol/L (3.5-5.1); Sodium 130 mmol/L (136-145)
[2022-05-26 07:24] LABS: #Eosinphils 0.3 thou/uL (0.0-0.7); #Lymphocytes 1.8 thou/uL (1.20-3.40); #Monocytes 1.1 thou/uL (0.11-0.59); #Neutrophils 7.9 thou/uL (1.40-6.50); %Basophils 0.2 % (0.0-1.0); %Eosinophils 3.1 % (0.0-10.0); %Lymphocytes 16.4 % (21.0-51.0); %Neutrophils 70.4 % (42.0-75.0); Hemoglobin 10.4 g/dL (12.0-16.0); Mean Corpuscular HGB CONC 32.6 g/dL (32.0-36.0); Mean Corpuscular Hemoglobin 31.7 pg (27.0-31.0); Mean Corpuscular Volume 97.3 fL (78.0-98.0); Mean Platelet Volume 8.3 fL (7.4-10.4); Platelet Count 394 thou/uL (130-400); RBC Distribution Width 16.1 % (11.5-14.5); White Blood Cell (WBC) Count 11.2 thou/uL (4.8-10.8)
[2022-05-26] MEDS: Enoxaparin Sodium 30 MG/0.3 ML SYRINGE SC SCH (09:51)
[2022-05-26] MEDS: Gabapentin 100 MG CAP PO SCH ×3 (09:51→20:45)
[2022-05-26] MEDS: Ascorbic Acid 500 mg Chewable Tablet PO SCH (09:51)
[2022-05-26] MEDS: Ferrous Sulfate 325 MG TAB PO SCH (09:52)
[2022-05-26] MEDS: cloNIDine 0.1 MG TAB PO SCH ×3 (09:52→20:45)
[2022-05-26] MEDS: Sodium Chloride 1 GM TAB PO SCH ×2 (09:52→20:46)
[2022-05-26] MEDS: Acetaminophen 500 MG TAB PO SCH ×4 (09:52→20:45)
[2022-05-26] MEDS: Metoprolol Tartrate 50 MG TAB PO SCH ×2 (09:52→20:44)
[2022-05-26] MEDS ORDERED: traMADol HCl 50 MG TAB PO SCH (14:00)
[2022-05-26] MEDS: Atorvastatin Calcium 40 MG TAB PO SCH (20:43)
[2022-05-26] MEDS: traMADol HCl 50 MG TAB PO SCH (20:46)
[2022-05-26] MEDS: Insulin Glargine 30 UNITS/0.3 ML VIAL SC SCH (21:04)
[2022-05-27 06:59] LABS: #Eosinphils 0.3 thou/uL (0.0-0.7); #Lymphocytes 1.5 thou/uL (1.20-3.40); #Neutrophils 7.1 thou/uL (1.40-6.50); %Basophils 0.5 % (0.0-1.0); %Lymphocytes 14.9 % (21.0-51.0); %Monocytes 10.1 % (0.0-10.0); %Neutrophils 71.6 % (42.0-75.0); Hemoglobin 8.9 g/dL (12.0-16.0); Mean Corpuscular HGB CONC 32.2 g/dL (32.0-36.0); Mean Corpuscular Hemoglobin 31.1 pg (27.0-31.0); Mean Corpuscular Volume 96.5 fL (78.0-98.0); Mean Platelet Volume 8.6 fL (7.4-10.4); Platelet Count 370 thou/uL (130-400); RBC Distribution Width 16.3 % (11.5-14.5); Red Blood Cell (RBC) Count 2.86 mill/uL (4.20-5.40); White Blood Cell (WBC) Count 9.9 thou/uL (4.8-10.8)
[2022-05-27 07:28] LABS: Anion Gap 13 mmol/L (10-20); BUN (Urea Nitrogen) 44 mg/dL (9.8-20.1); Calc. Creatinine Clearance 28 mL/min (70-130); Calcium 7.3 mg/dL (7.8-10.44); Carbon Dioxide 20 mmol/L (22-29); Chloride 104 mmol/L (98-107); Estimated GFR 23; Glucose 152 mg/dL (70-105); Potassium 4.4 mmol/L (3.5-5.1); Sodium 133 mmol/L (136-145)
[2022-05-27] MEDS: Acetaminophen 500 MG TAB PO SCH ×4 (08:44→20:51)
[2022-05-27] MEDS: traMADol HCl 50 MG TAB PO SCH ×2 (08:44→20:52)
[2022-05-27] MEDS: Enoxaparin Sodium 30 MG/0.3 ML SYRINGE SC SCH (08:45)
[2022-05-27] MEDS: cloNIDine 0.1 MG TAB PO SCH ×3 (08:46→20:50)
[2022-05-27] MEDS: Ferrous Sulfate 325 MG TAB PO SCH (08:46)
[2022-05-27] MEDS: Ascorbic Acid 500 mg Chewable Tablet PO SCH (08:46)
[2022-05-27] MEDS: Gabapentin 100 MG CAP PO SCH ×3 (08:46→20:50)
[2022-05-27] MEDS: Metoprolol Tartrate 50 MG TAB PO SCH ×2 (08:46→20:54)
[2022-05-27 10:58] LABS: ALT (SGPT) 37 U/L (8-55); AST (SGOT) 48 U/L (5-34); Albumin 1.5 g/dL (3.5-5.0); Alkaline Phosphatase 1062 U/L (40-110); Bilirubin, Direct 0.1 mg/dL (0.1-0.3); Bilirubin, Total 0.2 mg/dL (0.2-1.2); Protein, Total 4.7 g/dL (6.0-8.3)
[2022-05-27] MEDS: Atorvastatin Calcium 40 MG TAB PO SCH (20:50)
[2022-05-27] MEDS: Insulin Glargine 30 UNITS/0.3 ML VIAL SC SCH (20:53)
[2022-05-28 07:02] LABS: #Eosinphils 0.5 thou/uL (0.0-0.7); #Lymphocytes 1.3 thou/uL (1.20-3.40); #Monocytes 0.8 thou/uL (0.11-0.59); #Neutrophils 6.5 thou/uL (1.40-6.50); %Basophils 0.4 % (0.0-1.0); %Lymphocytes 14.6 % (21.0-51.0); %Monocytes 8.2 % (0.0-10.0); %Neutrophils 71.8 % (42.0-75.0); Mean Corpuscular Hemoglobin 30.9 pg (27.0-31.0); Mean Corpuscular Volume 96.7 fL (78.0-98.0); Mean Platelet Volume 8.3 fL (7.4-10.4); Platelet Count 339 thou/uL (130-400); RBC Distribution Width 16.3 % (11.5-14.5); Red Blood Cell (RBC) Count 2.57 mill/uL (4.20-5.40); White Blood Cell (WBC) Count 9.1 thou/uL (4.8-10.8)
[2022-05-28 07:25] LABS: Anion Gap 11 mmol/L (10-20); BUN (Urea Nitrogen) 45 mg/dL (9.8-20.1); Calc. Creatinine Clearance 31 mL/min (70-130); Calcium 7.4 mg/dL (7.8-10.44); Carbon Dioxide 21 mmol/L (22-29); Chloride 107 mmol/L (98-107); Estimated GFR 25; Glucose 130 mg/dL (70-105); Potassium 3.9 mmol/L (3.5-5.1); Sodium 135 mmol/L (136-145)
[2022-05-28] MEDS: Enoxaparin Sodium 30 MG/0.3 ML SYRINGE SC SCH (08:25)
[2022-05-28] MEDS: Ascorbic Acid 500 mg Chewable Tablet PO SCH (08:26)
[2022-05-28] MEDS: Metoprolol Tartrate 50 MG TAB PO SCH ×2 (08:26→20:58)
[2022-05-28] MEDS: Ferrous Sulfate 325 MG TAB PO SCH (08:26)
[2022-05-28] MEDS: Gabapentin 100 MG CAP PO SCH ×3 (08:26→21:00)
[2022-05-28] MEDS: Acetaminophen 500 MG TAB PO SCH ×4 (08:26→20:59)
[2022-05-28] MEDS: cloNIDine 0.1 MG TAB PO SCH ×3 (08:26→20:59)
[2022-05-28] MEDS: traMADol HCl 50 MG TAB PO SCH ×2 (08:27→21:00)
[2022-05-28] MEDS: Atorvastatin Calcium 40 MG TAB PO SCH (20:59)
[2022-05-28] MEDS: Insulin Glargine 30 UNITS/0.3 ML VIAL SC SCH (23:39)
[2022-05-29 06:32] LABS: #Eosinphils 0.6 thou/uL (0.0-0.7); #Lymphocytes 1.7 thou/uL (1.20-3.40); #Monocytes 0.8 thou/uL (0.11-0.59); #Neutrophils 7.6 thou/uL (1.40-6.50); %Basophils 0.3 % (0.0-1.0); %Lymphocytes 15.6 % (21.0-51.0); %Monocytes 7.6 % (0.0-10.0); %Neutrophils 70.6 % (42.0-75.0); Hemoglobin 8.5 g/dL (12.0-16.0); Mean Corpuscular HGB CONC 32.8 g/dL (32.0-36.0); Mean Corpuscular Hemoglobin 31.7 pg (27.0-31.0); Mean Corpuscular Volume 96.6 fL (78.0-98.0); Mean Platelet Volume 8.2 fL (7.4-10.4); Platelet Count 341 thou/uL (130-400); RBC Distribution Width 16.3 % (11.5-14.5); Red Blood Cell (RBC) Count 2.67 mill/uL (4.20-5.40); White Blood Cell (WBC) Count 10.7 thou/uL (4.8-10.8)
[2022-05-29 06:58] LABS: ALT (SGPT) 33 U/L (8-55); AST (SGOT) 32 U/L (5-34); Albumin 1.6 g/dL (3.5-5.0); Alkaline Phosphatase 1061 U/L (40-110); Anion Gap 13 mmol/L (10-20); BUN (Urea Nitrogen) 42 mg/dL (9.8-20.1); Bilirubin, Total 0.2 mg/dL (0.2-1.2); Calc. Creatinine Clearance 34 mL/min (70-130); Calcium 7.4 mg/dL (7.8-10.44); Carbon Dioxide 20 mmol/L (22-29); Chloride 108 mmol/L (98-107); Estimated GFR 28; Globulin 2.7 g/dL (2.4-3.5); Glucose 134 mg/dL (70-105); Potassium 4.1 mmol/L (3.5-5.1); Protein, Total 4.3 g/dL (6.0-8.3); Sodium 137 mmol/L (136-145)
[2022-05-29] MEDS ORDERED: traMADol HCl 50 MG TAB PO PRN (09:05)
[2022-05-29] MEDS: Acetaminophen 500 MG TAB PO SCH ×5 (09:16→20:44)
[2022-05-29] MEDS: Enoxaparin Sodium 30 MG/0.3 ML SYRINGE SC SCH (09:16)
[2022-05-29] MEDS: Gabapentin 100 MG CAP PO SCH ×3 (09:16→20:45)
[2022-05-29] MEDS: Ascorbic Acid 500 mg Chewable Tablet PO SCH (09:17)
[2022-05-29] MEDS: cloNIDine 0.1 MG TAB PO SCH ×3 (09:17→20:46)
[2022-05-29] MEDS: Ferrous Sulfate 325 MG TAB PO SCH (09:17)
[2022-05-29] MEDS: Metoprolol Tartrate 50 MG TAB PO SCH ×2 (09:17→20:46)
[2022-05-29] MEDS: traMADol HCl 50 MG TAB PO SCH (11:20)
[2022-05-29 11:27] LABS: Bilirubin Negative (Negative); Blood, Urine Trace (Negative); Clarity Clear (Clear); Glucose, Urine (Dipstick) 100 mg/dL (Negative); Ketone, Urine Negative (Negative); Leukocyte 250 Leu/uL (Negative); Nitrite Negative (Negative); Protein, Urine (Dipstick) 300 mg/dL (Neg-Trace); Specific Gravity, Urine 1.011 (1.002-1.036); Squamous Epithelial 0-3 HPF (0-3); Urobilinogen Normal mg/dL (Less than 2); Yeast-Budding 2+ HPF (None Seen); pH, Urine 6.5 (5.0-9.0)
[2022-05-29 11:38] LABS: Bacteria/HPF 1+ HPF (None Seen)
[2022-05-29 11:39] LABS: Yeast-Hyphae 1+ HPF (None Seen)
[2022-05-29 11:40] LABS: Urine Culture Reflex Yes Yes
[2022-05-29] MEDS ORDERED: cefTRIAXone\\ROCEPHIN 1 GM in Sodium Chloride 0.9% 100 ML IVPB SCH (14:00)
[2022-05-29] MEDS: Atorvastatin Calcium 40 MG TAB PO SCH (20:46)
[2022-05-29] MEDS: Insulin Glargine 30 UNITS/0.3 ML VIAL SC SCH (20:46)
[2022-05-29] MEDS: Benzonatate 100 MG CAP PO PRN (23:30)
[2022-05-30 06:56] LABS: #Eosinphils 0.6 thou/uL (0.0-0.7); #Lymphocytes 1.3 thou/uL (1.20-3.40); #Monocytes 0.8 thou/uL (0.11-0.59); #Neutrophils 7.5 thou/uL (1.40-6.50); %Basophils 0.4 % (0.0-1.0); %Eosinophils 5.6 % (0.0-10.0); %Lymphocytes 12.4 % (21.0-51.0); %Monocytes 7.5 % (0.0-10.0); %Neutrophils 74.1 % (42.0-75.0); Hemoglobin 9.2 g/dL (12.0-16.0); Mean Corpuscular HGB CONC 32.8 g/dL (32.0-36.0); Mean Corpuscular Hemoglobin 32.1 pg (27.0-31.0); Mean Corpuscular Volume 97.8 fL (78.0-98.0); Mean Platelet Volume 8.3 fL (7.4-10.4); Platelet Count 386 thou/uL (130-400); RBC Distribution Width 16.4 % (11.5-14.5); Red Blood Cell (RBC) Count 2.86 mill/uL (4.20-5.40); White Blood Cell (WBC) Count 10.1 thou/uL (4.8-10.8)
[2022-05-30 07:15] LABS: ALT (SGPT) 41 U/L (8-55); AST (SGOT) 44 U/L (5-34); Albumin 1.6 g/dL (3.5-5.0); Alkaline Phosphatase 1158 U/L (40-110); Anion Gap 13 mmol/L (10-20); BUN (Urea Nitrogen) 40 mg/dL (9.8-20.1); Bilirubin, Total Less than 0.2 mg/dL (0.2-1.2); Calc. Creatinine Clearance 35 mL/min (70-130); Calcium 7.5 mg/dL (7.8-10.44); Carbon Dioxide 22 mmol/L (22-29); Chloride 109 mmol/L (98-107); Estimated GFR 29; Glucose 122 mg/dL (70-105); Protein, Total 4.6 g/dL (6.0-8.3); Sodium 140 mmol/L (136-145)
[2022-05-30] MEDS: Ferrous Sulfate 325 MG TAB PO SCH (08:53)
[2022-05-30] MEDS: Enoxaparin Sodium 30 MG/0.3 ML SYRINGE SC SCH (08:53)
[2022-05-30] MEDS: Ascorbic Acid 500 mg Chewable Tablet PO SCH (08:53)
[2022-05-30] MEDS: cloNIDine 0.1 MG TAB PO SCH ×3 (08:53→21:16)
[2022-05-30] MEDS: Metoprolol Tartrate 50 MG TAB PO SCH ×2 (08:53→21:15)
[2022-05-30] MEDS: Gabapentin 100 MG CAP PO SCH ×3 (08:54→21:15)
[2022-05-30] MEDS: Acetaminophen 500 MG TAB PO SCH ×4 (08:55→21:15)
[2022-05-30 15:26] LABS: Urine Total Volume 1450 mL (600-1600)
[2022-05-30 16:54] LABS: Protein - 24 Hr 5945 mg/24 hr (Less than 300); Protein, Urine 410 mg/dL (1-14)
[2022-05-30] MEDS: Atorvastatin Calcium 40 MG TAB PO SCH (21:15)
[2022-05-30] MEDS: Insulin Glargine 30 UNITS/0.3 ML VIAL SC SCH (21:16)
[2022-05-31 06:29] LABS: #Eosinphils 0.6 thou/uL (0.0-0.7); #Lymphocytes 1.4 thou/uL (1.20-3.40); #Monocytes 0.7 thou/uL (0.11-0.59); #Neutrophils 6.5 thou/uL (1.40-6.50); %Basophils 0.4 % (0.0-1.0); %Lymphocytes 14.9 % (21.0-51.0); %Monocytes 7.6 % (0.0-10.0); %Neutrophils 70.1 % (42.0-75.0); Hemoglobin 9.2 g/dL (12.0-16.0); Mean Corpuscular HGB CONC 32.9 g/dL (32.0-36.0); Mean Corpuscular Hemoglobin 32.7 pg (27.0-31.0); Mean Corpuscular Volume 99.4 fL (78.0-98.0); Mean Platelet Volume 8.3 fL (7.4-10.4); Platelet Count 374 thou/uL (130-400); RBC Distribution Width 16.5 % (11.5-14.5); Red Blood Cell (RBC) Count 2.83 mill/uL (4.20-5.40); White Blood Cell (WBC) Count 9.3 thou/uL (4.8-10.8)
[2022-05-31 07:07] LABS: ALT (SGPT) 49 U/L (8-55); AST (SGOT) 55 U/L (5-34); Albumin 1.6 g/dL (3.5-5.0); Alkaline Phosphatase 1171 U/L (40-110); Anion Gap 13 mmol/L (10-20); BUN (Urea Nitrogen) 37 mg/dL (9.8-20.1); Bilirubin, Total 0.2 mg/dL (0.2-1.2); Calc. Creatinine Clearance 35 mL/min (70-130); Calcium 7.5 mg/dL (7.8-10.44); Carbon Dioxide 20 mmol/L (22-29); Chloride 110 mmol/L (98-107); Estimated GFR 32; Globulin 2.9 g/dL (2.4-3.5); Glucose 80 mg/dL (70-105); Protein, Total 4.5 g/dL (6.0-8.3); Sodium 139 mmol/L (136-145)
[2022-05-31] MEDS: Acetaminophen 500 MG TAB PO SCH ×3 (08:34→16:48)
[2022-05-31] MEDS: Ferrous Sulfate 325 MG TAB PO SCH (08:35)
[2022-05-31] MEDS: Benzonatate 100 MG CAP PO PRN (08:35)
[2022-05-31] MEDS: Enoxaparin Sodium 30 MG/0.3 ML SYRINGE SC SCH (08:35)
[2022-05-31] MEDS: cloNIDine 0.1 MG TAB PO SCH ×2 (08:35→15:15)
[2022-05-31] MEDS: Gabapentin 100 MG CAP PO SCH ×2 (08:35→15:14)
[2022-05-31] MEDS: Ascorbic Acid 500 mg Chewable Tablet PO SCH (08:35)
[2022-05-31] MEDS: Metoprolol Tartrate 50 MG TAB PO SCH (08:35)
[2022-05-31 17:10] VITALS: TEMP 98.7
[2022-05-31 17:15] VITALS: BP 133/78
== END 2022-05-31 17:39 | disposition swing bed (61) | DRG 682 ==
LOC: T4-B 16:45
PROVIDERS: ADMIT Family Medicine; ATTEND Family Medicine
PROC: 8E0ZXY6 Isolation (ICD-10-PCS; principal; 2022-05-25)
DX: N17.9 Acute kidney failure, unspecified (principal); U07.1 COVID-19; E87.1 Hypo-osmolality and hyponatremia; I13.0 Hypertensive heart and chronic kidney disease with heart failure and stage 1 through stage 4 chronic kidney disease, or unspecified chronic kidney disease; E87.2 Acidosis; I50.32 Chronic diastolic (congestive) heart failure; R33.9 Retention of urine, unspecified; N18.4 Chronic kidney disease, stage 4 (severe); E78.5 Hyperlipidemia, unspecified; E11.22 Type 2 diabetes mellitus with diabetic chronic kidney disease; D63.1 Anemia in chronic kidney disease; R82.81 Pyuria; R53.1 Weakness; D72.829 Elevated white blood cell count, unspecified; R74.8 Abnormal levels of other serum enzymes; R30.0 Dysuria; R80.9 Proteinuria, unspecified; S22.49XD Multiple fractures of ribs, unspecified side, subsequent encounter for fracture with routine healing; Z79.899 Other long term (current) drug therapy; Z79.4 Long term (current) use of insulin; Z88.5 Allergy status to narcotic agent; Z90.710 Acquired absence of both cervix and uterus; Z90.89 Acquired absence of other organs; Z83.3 Family history of diabetes mellitus; Z82.49 Family history of ischemic heart disease and other diseases of the circulatory system
CPT/HCPCS: 36415; 36416; 71045; 76705; 76770; 80048; 80053; 80076; 81001; 81003; 81015; 82570; 82977; 83880; 84156; 84300; 85025; 87086; J0696; J1650; J1815; J1940; J3490

== ENCOUNTER 2022-06-09 14:47 | Inpatient (IN) | payer OTHER ==
[2022-06-09] MEDS ORDERED: Dextrose 50% Abboject 50 ML SYRINGE SLOW IVP PRN (17:59)
[2022-06-09] MEDS ORDERED: Dextrose 5% in Water 1,000 ML IV PRN (17:59)
[2022-06-09] MEDS ORDERED: Cyclobenzaprine 10 MG TAB PO PRN (18:35)
[2022-06-09] MEDS: Acetaminophen 500 MG TAB PO SCH (19:54)
[2022-06-09] MEDS: Atorvastatin Calcium 40 MG TAB PO SCH (19:55)
[2022-06-09] MEDS: Metoprolol Tartrate 50 MG TAB PO SCH (19:56)
[2022-06-09] MEDS: Sodium Chloride 1 GM TAB PO SCH (19:56)
[2022-06-09] MEDS: Heparin 5,000 UNITS/ML VIAL SC SCH (19:57)
[2022-06-09] MEDS: HumaLOG 300 UNITS/3 ML VIAL SC PRN (20:18)
[2022-06-09] MEDS: Gabapentin 100 MG CAP PO SCH (20:18)
[2022-06-09] MEDS ORDERED: Gabapentin 300 MG CAP PO SCH (21:00)
[2022-06-09] MEDS: cefTRIAXone\\ROCEPHIN 1 GM in Sodium Chloride 0.9% 100 ML IVPB SCH (22:20)
[2022-06-09] MEDS: traMADol HCl 50 MG TAB PO SCH (22:26)
[2022-06-10] MEDS: traMADol HCl 50 MG TAB PO SCH ×2 (05:32→14:20)
[2022-06-10 07:06] LABS: Mean Corpuscular Hemoglobin 33.5 pg (27.0-31.0); Mean Platelet Volume 8.1 fL (7.4-10.4); Platelet Count 383 thou/uL (130-400); RBC Distribution Width 17.8 % (11.5-14.5); Red Blood Cell (RBC) Count 2.39 mill/uL (4.20-5.40)
[2022-06-10 07:18] LABS: ALT (SGPT) 45 U/L (8-55); AST (SGOT) 46 U/L (5-34); Albumin 2.9 g/dL (3.5-5.0); Alkaline Phosphatase 1060 U/L (40-110); Anion Gap 10 mmol/L (10-20); BUN (Urea Nitrogen) 44 mg/dL (9.8-20.1); Bilirubin, Total 0.2 mg/dL (0.2-1.2); Calc. Creatinine Clearance 22 mL/min (70-130); Calcium 8.4 mg/dL (7.8-10.44); Carbon Dioxide 20 mmol/L (22-29); Chloride 111 mmol/L (98-107); Estimated GFR 17; Globulin 3.2 g/dL (2.4-3.5); Glucose 145 mg/dL (70-105); Potassium 5.1 mmol/L (3.5-5.1); Protein, Total 6.1 g/dL (6.0-8.3); Sodium 136 mmol/L (136-145)
[2022-06-10] MEDS: Acetaminophen 500 MG TAB PO SCH ×4 (07:59→20:21)
[2022-06-10] MEDS: Heparin 5,000 UNITS/ML VIAL SC SCH ×3 (08:00→20:23)
[2022-06-10] MEDS: Gabapentin 100 MG CAP PO SCH ×3 (08:01→20:21)
[2022-06-10] MEDS: Metoprolol Tartrate 50 MG TAB PO SCH ×2 (08:01→20:22)
[2022-06-10] MEDS: Sodium Chloride 1 GM TAB PO SCH (08:01)
[2022-06-10] MEDS: Ascorbic Acid 500 mg Chewable Tablet PO SCH (08:01)
[2022-06-10 08:32] LABS: Band 2 % (5-11); Eosinophils 10 % (0-10); Lymphocytes 13 % (21-51); MDiff Complete? YES; Monocytes 10 % (0-10); Neutrophil 64 % (42-75); Platelet Morphology Comment Appears Adequate; Polychromasia SLIGHT = 2-3 cells (100X) (0-2/hpf)
[2022-06-10] MEDS ORDERED: Ferrous Sulfate 325 MG TAB PO SCH (09:00)
[2022-06-10] MEDS ORDERED: Fluconazole 100 MG TAB PO SCH (09:00)
[2022-06-10] MEDS ORDERED: Furosemide 40 MG/4 ML VIAL SLOW IVP SCH ×3 (11:45→18:00)
[2022-06-10 15:42] LABS: Creatinine, Urine 82.22 mg/dL (47-110)
[2022-06-10] MEDS: Atorvastatin Calcium 40 MG TAB PO SCH (20:22)
[2022-06-10] MEDS: cefTRIAXone\\ROCEPHIN 1 GM in Sodium Chloride 0.9% 100 ML IVPB SCH (20:23)
[2022-06-10] MEDS ORDERED: Heparin 10,000 UNITS/ 10 ML VIAL SLOW IVP SCH (22:00)
[2022-06-10] MEDS ORDERED: Furosemide 100 MG/10 ML VIAL SLOW IVP SCH ×2 (23:00→23:30)
[2022-06-10 23:10] LABS: Hemoglobin 8.1 g/dL (12.0-16.0); Platelet Count 401 thou/uL (130-400)
[2022-06-10 23:31] LABS: Troponin I Less than 0.010 ng/mL (< 0.028)
[2022-06-11] MEDS: traMADol HCl 50 MG TAB PO SCH ×4 (00:45→22:34)
[2022-06-11] MEDS: Heparin 25,000 units/D5W 500 ML IVPB SCH ×2 (00:48→20:19)
[2022-06-11] MEDS: Albuterol Sulfate 2.5 mg/3 ml Neb NEB PRN ×2 (02:04→13:19)
[2022-06-11 03:30] LABS: Actual Bicarbonate (HCO3a) 15.9 mEq/L (22-28); Base Excess (BEa) -9.5 mEq/L (-2.0 to +3.0); CO2 Tension 32.7 mmHg (35.0-45.0); Calcium, Ionized (arterial) 1.15 mmol/L (1.12-1.30); Carboxyhemoglobin (COHb) 0.4 gm% (0.0-3.0); O2 Tension (PaO2), arterial 68.6 mmHg (80.0-100.0); Potassium - ABG Lab 5.27 mmol/L (3.70-5.30); pH, Arterial 7.31 (7.35-7.45)
[2022-06-11 03:33] LABS: ALV-art Gradient 247.025 mmHg (0-20); Puncture Site RRA
[2022-06-11] MEDS ORDERED: Torsemide 10 MG TAB PO SCH (04:30)
[2022-06-11 05:08] LABS: Anion Gap 19 mmol/L (10-20); BUN (Urea Nitrogen) 43 mg/dL (9.8-20.1); Calc. Creatinine Clearance 21 mL/min (70-130); Carbon Dioxide 15 mmol/L (22-29); Chloride 110 mmol/L (98-107); Estimated GFR 16; Glucose 162 mg/dL (70-105); Magnesium 2.3 mg/dL (1.6-2.6); Potassium 5.5 mmol/L (3.5-5.1); Sodium 138 mmol/L (136-145)
[2022-06-11] MEDS ORDERED: Furosemide 100 MG/10 ML VIAL SLOW IVP SCH (07:15)
[2022-06-11 08:13] LABS: Actual Bicarbonate (HCO3a) 16.3 mEq/L (22-28); Base Excess (BEa) -9.1 mEq/L (-2.0 to +3.0); CO2 Tension 33.6 mmHg (35.0-45.0); Calcium, Ionized (arterial) 1.16 mmol/L (1.12-1.30); Carboxyhemoglobin (COHb) 0.3 gm% (0.0-3.0); Hemoglobin (Hb) 7.9 g/dL (12.0-16.0); O2 Tension (PaO2), arterial 63.2 mmHg (80.0-100.0); Potassium - ABG Lab 5.35 mmol/L (3.70-5.30); pH, Arterial 7.31 (7.35-7.45)
[2022-06-11 08:18] LABS: Puncture Site RRA
[2022-06-11] MEDS: Gabapentin 100 MG CAP PO SCH ×3 (08:40→20:26)
[2022-06-11] MEDS: Metoprolol Tartrate 50 MG TAB PO SCH ×2 (08:40→20:26)
[2022-06-11] MEDS: Acetaminophen 500 MG TAB PO SCH ×4 (10:29→20:26)
[2022-06-11] MEDS: Ascorbic Acid 500 mg Chewable Tablet PO SCH (10:30)
[2022-06-11] MEDS: Furosemide 100 MG/10 ML VIAL SLOW IVP SCH (13:03)
[2022-06-11 13:43] LABS: Anion Gap 19 mmol/L (10-20); BUN (Urea Nitrogen) 44 mg/dL (9.8-20.1); Calc. Creatinine Clearance 23 mL/min (70-130); Calcium 8.6 mg/dL (7.8-10.44); Carbon Dioxide 14 mmol/L (22-29); Chloride 110 mmol/L (98-107); Estimated GFR 17; Glucose 178 mg/dL (70-105); Potassium 5.4 mmol/L (3.5-5.1); Sodium 138 mmol/L (136-145)
[2022-06-11] MEDS ORDERED: Sodium Bicarb 50 MEQ/50 ML VIAL IVP SCH (14:15)
[2022-06-11] MEDS ORDERED: Metolazone 5 MG TAB PO SCH (15:00)
[2022-06-11] MEDS: Sodium Bicarbonate Tab 325 MG TAB PO SCH ×2 (16:38→20:27)
[2022-06-11] MEDS ORDERED: Cefepime 0.5 GM, Admixture Fee 1 EACH in Sodium Chloride 0.9% 100 ML IVPB SCH (20:00)
[2022-06-11] MEDS ORDERED: Sodium Bicarb 50 MEQ/50 ML VIAL FS SCH (20:00)
[2022-06-11] MEDS: Cefepime 1 GM in Sodium Chloride 0.9% 100 ML IVPB SCH (20:10)
[2022-06-11] MEDS: Atorvastatin Calcium 40 MG TAB PO SCH (20:26)
[2022-06-12] MEDS: hydrALAZINE 20 MG/ML VIAL SLOW IVP PRN (01:23)
[2022-06-12 05:05] LABS: Anion Gap 19 mmol/L (10-20); BUN (Urea Nitrogen) 42 mg/dL (9.8-20.1); Calc. Creatinine Clearance 23 mL/min (70-130); Calcium 8.9 mg/dL (7.8-10.44); Carbon Dioxide 16 mmol/L (22-29); Chloride 107 mmol/L (98-107); Estimated GFR 16; Glucose 249 mg/dL (70-105); Potassium 4.9 mmol/L (3.5-5.1); Sodium 137 mmol/L (136-145)
[2022-06-12 05:41] LABS: Hemoglobin 7.7 g/dL (12.0-16.0); Mean Corpuscular HGB CONC 32.6 g/dL (32.0-36.0); Mean Corpuscular Hemoglobin 32.9 pg (27.0-31.0); Mean Platelet Volume 8.9 fL (7.4-10.4); Platelet Count 356 thou/uL (130-400); RBC Distribution Width 18.1 % (11.5-14.5); Red Blood Cell (RBC) Count 2.35 mill/uL (4.20-5.40); White Blood Cell (WBC) Count 13.1 thou/uL (4.8-10.8)
[2022-06-12 05:42] LABS: #Eosinphils 0.1 thou/uL (0.0-0.7); #Lymphocytes 0.9 thou/uL (1.20-3.40); #Monocytes 1.4 thou/uL (0.11-0.59); #Neutrophils 10.7 thou/uL (1.40-6.50); %Basophils 0.3 % (0.0-1.0); %Eosinophils 0.5 % (0.0-10.0); %Lymphocytes 6.5 % (21.0-51.0); %Monocytes 10.9 % (0.0-10.0); %Neutrophils 81.8 % (42.0-75.0)
[2022-06-12] MEDS: Furosemide 100 MG/10 ML VIAL SLOW IVP SCH (06:45)
[2022-06-12] MEDS: traMADol HCl 50 MG TAB PO SCH ×3 (06:47→21:27)
[2022-06-12] MEDS ORDERED: Heparin 10,000 UNITS/ 10 ML VIAL ONE (08:11)
[2022-06-12] MEDS: Acetaminophen 500 MG TAB PO SCH ×4 (09:44→21:17)
[2022-06-12] MEDS: Ascorbic Acid 500 mg Chewable Tablet PO SCH (09:45)
[2022-06-12] MEDS: Gabapentin 100 MG CAP PO SCH ×3 (09:45→21:18)
[2022-06-12] MEDS: Sodium Bicarbonate Tab 325 MG TAB PO SCH (09:45)
[2022-06-12] MEDS: Heparin 5,000 UNITS/ML VIAL SC SCH ×3 (09:46→21:18)
[2022-06-12] MEDS: Pantoprazole 40 MG VIAL IVP SCH (09:46)
[2022-06-12] MEDS: Labetalol HCl 100 MG/20 ML VIAL SLOW IVP PRN ×3 (10:10→22:00)
[2022-06-12] MEDS ORDERED: Midazolam HCl 2 mg/2 ml Vial SLOW IVP PRN (10:58)
[2022-06-12 12:10] LABS: HBSAB Concentration Less than 8.00 mIU/mL; HBSAg Index 0.32 S/CO (0-0.99); Hep B Core Total Ab Non-Reactive (NonReactive); Hep B Core Total Index 0.04 S/CO (0-0.79); Hep B Surf AB Non-Reactive (NonReactive); Hep B Surf Ag Non-Reactive S/CO (NonReactive); Hep C IgG Ab Non-Reactive (NonReactive); Hep C Index 0.06 S/CO (0-0.79)
[2022-06-12] MEDS ORDERED: Lidocaine 1% (PF) 30 ML VIAL ONE (14:25)
[2022-06-12 15:48] LABS: ANA Symphony (Qualitative) Negative (Negative); ANA Symphony (Quantitative) 0.2 Ratio (< 0.7 Negative); dsDNA IgG Antibody 0.5 IU/mL (<10 Negative)
[2022-06-12] MEDS: Atorvastatin Calcium 40 MG TAB PO SCH (21:17)
[2022-06-12] MEDS: Cefepime 1 GM in Sodium Chloride 0.9% 100 ML IVPB SCH (21:17)
[2022-06-13 05:03] LABS: #Eosinphils 0.1 thou/uL (0.0-0.7); #Lymphocytes 1.2 thou/uL (1.20-3.40); #Monocytes 1.2 thou/uL (0.11-0.59); #Neutrophils 8.3 thou/uL (1.40-6.50); %Basophils 0.3 % (0.0-1.0); %Eosinophils 0.8 % (0.0-10.0); %Lymphocytes 11.3 % (21.0-51.0); %Monocytes 11.2 % (0.0-10.0); %Neutrophils 76.4 % (42.0-75.0); Hemoglobin 9.5 g/dL (12.0-16.0); Mean Corpuscular HGB CONC 31.9 g/dL (32.0-36.0); Mean Corpuscular Hemoglobin 31.7 pg (27.0-31.0); Mean Corpuscular Volume 99.4 fL (78.0-98.0); Mean Platelet Volume 9.2 fL (7.4-10.4); Platelet Count 307 thou/uL (130-400); RBC Distribution Width 17.3 % (11.5-14.5); Red Blood Cell (RBC) Count 2.99 mill/uL (4.20-5.40); White Blood Cell (WBC) Count 10.9 thou/uL (4.8-10.8)
[2022-06-13 06:41] LABS: Chloride 108 mmol/L (98-107)
[2022-06-13 06:42] LABS: Calcium 8.7 mg/dL (7.8-10.44); Potassium 3.8 mmol/L (3.5-5.1); Sodium 139 mmol/L (136-145)
[2022-06-13 06:43] LABS: Glucose 132 mg/dL (70-105); Magnesium 1.8 mg/dL (1.6-2.6)
[2022-06-13 06:44] LABS: Anion Gap 16 mmol/L (10-20); Carbon Dioxide 19 mmol/L (22-29)
[2022-06-13 06:46] LABS: Calc. Creatinine Clearance 29 mL/min (70-130); Estimated GFR 23
[2022-06-13 06:47] LABS: BUN (Urea Nitrogen) 27 mg/dL (9.8-20.1)
[2022-06-13] MEDS: traMADol HCl 50 MG TAB PO SCH ×3 (07:52→23:19)
[2022-06-13] MEDS ORDERED: Heparin 10,000 UNITS/ 10 ML VIAL ONE (08:46)
[2022-06-13] MEDS: Acetaminophen 500 MG TAB PO SCH ×4 (09:25→21:06)
[2022-06-13] MEDS: Gabapentin 100 MG CAP PO SCH ×3 (09:25→21:05)
[2022-06-13] MEDS: Ascorbic Acid 500 mg Chewable Tablet PO SCH (09:25)
[2022-06-13] MEDS: Heparin 5,000 UNITS/ML VIAL SC SCH ×3 (09:25→21:06)
[2022-06-13] MEDS: Pantoprazole 40 MG VIAL IVP SCH (09:25)
[2022-06-13 16:37] LABS: IFE-Serum Interpretation Note: (.); IgA - Total IgA (Sendout) 21 mg/dL (87-352); Immunoglobulin - G (Sendout) 1318 mg/dL (586-1602); Immunoglobulin - M (Sendout) 22 mg/dL (26-217)
[2022-06-13] MEDS: Cefepime 1 GM in Sodium Chloride 0.9% 100 ML IVPB SCH (21:03)
[2022-06-13] MEDS: Atorvastatin Calcium 40 MG TAB PO SCH (21:06)
[2022-06-13] MEDS ORDERED: Ondansetron ODT 4 MG TAB PO PRN (21:14)
[2022-06-13] MEDS ORDERED: Calcium Carbonate 500 MG ChewTAB PO PRN (21:15)
[2022-06-13] MEDS ORDERED: Metoprolol Tartrate 25 MG TAB PO SCH (21:20)
[2022-06-13] MEDS: Ondansetron PF 4 MG/2 ML Vial IVP PRN (21:29)
[2022-06-13] MEDS: hydrALAZINE 20 MG/ML VIAL SLOW IVP PRN (22:58)
[2022-06-14 07:22] LABS: #Eosinphils 0.1 thou/uL (0.0-0.7); #Lymphocytes 1.3 thou/uL (1.20-3.40); #Monocytes 0.7 thou/uL (0.11-0.59); #Neutrophils 7.6 thou/uL (1.40-6.50); %Basophils 0.1 % (0.0-1.0); %Eosinophils 0.8 % (0.0-10.0); %Lymphocytes 12.9 % (21.0-51.0); %Monocytes 7.2 % (0.0-10.0); Mean Corpuscular HGB CONC 30.8 g/dL (32.0-36.0); Mean Corpuscular Hemoglobin 30.9 pg (27.0-31.0); Mean Platelet Volume 9.2 fL (7.4-10.4); Platelet Count 283 thou/uL (130-400); Red Blood Cell (RBC) Count 3.55 mill/uL (4.20-5.40); White Blood Cell (WBC) Count 9.7 thou/uL (4.8-10.8)
[2022-06-14] MEDS: traMADol HCl 50 MG TAB PO SCH ×3 (08:05→21:04)
[2022-06-14] MEDS ORDERED: Metoprolol Tartrate 50 MG TAB PO SCH (09:00)
[2022-06-14] MEDS ORDERED: Acetaminophen 325 MG TAB PO PRN (09:03)
[2022-06-14] MEDS ORDERED: Losartan 25 MG TAB PO SCH (09:30)
[2022-06-14 09:39] LABS: Kappa/Lambda Ratio 4.6 (1.83-14.26)
[2022-06-14] MEDS: Ascorbic Acid 500 mg Chewable Tablet PO SCH (10:06)
[2022-06-14] MEDS: Heparin 5,000 UNITS/ML VIAL SC SCH ×3 (10:07→20:05)
[2022-06-14] MEDS: Gabapentin 100 MG CAP PO SCH ×3 (10:07→20:04)
[2022-06-14] MEDS: Losartan 25 MG TAB PO SCH (10:08)
[2022-06-14] MEDS: Pantoprazole 40 MG VIAL IVP SCH (10:08)
[2022-06-14] MEDS: Acetaminophen 500 MG TAB PO SCH (10:23)
[2022-06-14 13:06] LABS: Anion Gap 16 mmol/L (10-20); BUN (Urea Nitrogen) 22 mg/dL (9.8-20.1); Calc. Creatinine Clearance 32 mL/min (70-130); Calcium 8.6 mg/dL (7.8-10.44); Carbon Dioxide 22 mmol/L (22-29); Chloride 102 mmol/L (98-107); Estimated GFR 28; Glucose 142 mg/dL (70-105); Potassium 3.5 mmol/L (3.5-5.1); Sodium 136 mmol/L (136-145)
[2022-06-14] MEDS: Insulin Regular 300 UNITS/3 ML VIAL SC PRN (17:32)
[2022-06-14] MEDS: Atorvastatin Calcium 40 MG TAB PO SCH (20:04)
[2022-06-14] MEDS: Cefepime 1 GM in Sodium Chloride 0.9% 100 ML IVPB SCH (20:04)
[2022-06-14] MEDS: hydrALAZINE 20 MG/ML VIAL SLOW IVP PRN (20:31)
[2022-06-14 22:20] LABS: Hemoglobin 11.1 g/dL (12.0-16.0); Platelet Count 267 thou/uL (130-400)
[2022-06-15] MEDS: traMADol HCl 50 MG TAB PO SCH (05:03)
[2022-06-15] MEDS: hydrALAZINE 20 MG/ML VIAL SLOW IVP PRN (06:11)
[2022-06-15 06:44] LABS: #Basophils 0.1 thou/uL (0.0-0.2); #Eosinphils 0.4 thou/uL (0.0-0.7); #Lymphocytes 1.3 thou/uL (1.20-3.40); #Monocytes 1.1 thou/uL (0.11-0.59); #Neutrophils 6.1 thou/uL (1.40-6.50); %Basophils 0.7 % (0.0-1.0); %Eosinophils 4.9 % (0.0-10.0); %Lymphocytes 14.6 % (21.0-51.0); %Monocytes 12.5 % (0.0-10.0); %Neutrophils 67.3 % (42.0-75.0); Hemoglobin 11.2 g/dL (12.0-16.0); Mean Corpuscular HGB CONC 31.9 g/dL (32.0-36.0); Mean Platelet Volume 8.4 fL (7.4-10.4); Platelet Count 278 thou/uL (130-400); RBC Distribution Width 16.6 % (11.5-14.5)
[2022-06-15 07:05] LABS: Anion Gap 12 mmol/L (10-20); BUN (Urea Nitrogen) 24 mg/dL (9.8-20.1); Calc. Creatinine Clearance 27 mL/min (70-130); Calcium 8.4 mg/dL (7.8-10.44); Carbon Dioxide 23 mmol/L (22-29); Chloride 105 mmol/L (98-107); Estimated GFR 23; Glucose 148 mg/dL (70-105); Potassium 3.2 mmol/L (3.5-5.1); Sodium 137 mmol/L (136-145)
[2022-06-15] MEDS ORDERED: Potassium Chloride 20 MEQ TAB PO SCH (07:45)
[2022-06-15] MEDS ORDERED: traMADol HCl 50 MG TAB PO PRN (08:27)
[2022-06-15] MEDS ORDERED: NIFEdipine XL 30 MG TAB PO SCH (09:00)
[2022-06-15] MEDS: Ascorbic Acid 500 mg Chewable Tablet PO SCH (09:09)
[2022-06-15] MEDS: Gabapentin 100 MG CAP PO SCH (09:09)
[2022-06-15] MEDS: Losartan 25 MG TAB PO SCH (09:09)
[2022-06-15] MEDS: Pantoprazole 40 MG VIAL IVP SCH (09:10)
[2022-06-15] MEDS: Heparin 5,000 UNITS/ML VIAL SC SCH ×3 (09:10→21:31)
[2022-06-15] MEDS: Insulin Regular 300 UNITS/3 ML VIAL SC PRN ×2 (18:14→23:02)
[2022-06-15] MEDS: Cefepime 1 GM in Sodium Chloride 0.9% 100 ML IVPB SCH (21:30)
[2022-06-15] MEDS: Atorvastatin Calcium 40 MG TAB PO SCH (21:30)
[2022-06-16 03:50] LABS: #Eosinphils 0.7 thou/uL (0.0-0.7); #Lymphocytes 1.1 thou/uL (1.20-3.40); #Monocytes 1.4 thou/uL (0.11-0.59); #Neutrophils 7.6 thou/uL (1.40-6.50); %Basophils 0.3 % (0.0-1.0); %Eosinophils 6.5 % (0.0-10.0); %Lymphocytes 10.2 % (21.0-51.0); %Monocytes 12.7 % (0.0-10.0); %Neutrophils 70.3 % (42.0-75.0); Mean Corpuscular HGB CONC 33.1 g/dL (32.0-36.0); Mean Corpuscular Hemoglobin 32.6 pg (27.0-31.0); Mean Corpuscular Volume 98.3 fL (78.0-98.0); Mean Platelet Volume 8.9 fL (7.4-10.4); Platelet Count 273 thou/uL (130-400); RBC Distribution Width 16.6 % (11.5-14.5); Red Blood Cell (RBC) Count 3.08 mill/uL (4.20-5.40); White Blood Cell (WBC) Count 10.9 thou/uL (4.8-10.8)
[2022-06-16 04:13] LABS: Phosphorus 3.2 mg/dL (2.3-4.7)
[2022-06-16 04:19] LABS: Anion Gap 11 mmol/L (10-20); BUN (Urea Nitrogen) 29 mg/dL (9.8-20.1); Calc. Creatinine Clearance 25 mL/min (70-130); Calcium 8.3 mg/dL (7.8-10.44); Carbon Dioxide 25 mmol/L (22-29); Chloride 105 mmol/L (98-107); Estimated GFR 21; Glucose 188 mg/dL (70-105); Potassium 3.4 mmol/L (3.5-5.1); Sodium 138 mmol/L (136-145)
[2022-06-16] MEDS: hydrALAZINE 20 MG/ML VIAL SLOW IVP PRN (06:17)
[2022-06-16] MEDS: Insulin Regular 300 UNITS/3 ML VIAL SC PRN (06:18)
[2022-06-16] MEDS ORDERED: Potassium Chloride 20 MEQ TAB PO SCH (09:00)
[2022-06-16] MEDS ORDERED: NIFEdipine XL 60 MG TAB PO SCH (09:00)
[2022-06-16] MEDS: Losartan 25 MG TAB PO SCH (09:25)
[2022-06-16] MEDS: Ascorbic Acid 500 mg Chewable Tablet PO SCH (09:25)
[2022-06-16] MEDS: Heparin 5,000 UNITS/ML VIAL SC SCH ×3 (09:25→21:12)
[2022-06-16] MEDS: Pantoprazole 40 MG VIAL IVP SCH (09:26)
[2022-06-16 14:42] LABS: Reticulocyte Count 1.7 % (0.5-1.5)
[2022-06-16] MEDS: HumaLOG 300 UNITS/3 ML VIAL SC PRN (17:33)
[2022-06-16] MEDS: Atorvastatin Calcium 40 MG TAB PO SCH (21:12)
[2022-06-17 05:02] LABS: #Basophils 0.1 thou/uL (0.0-0.2); #Eosinphils 0.5 thou/uL (0.0-0.7); #Lymphocytes 1.3 thou/uL (1.20-3.40); #Monocytes 1.2 thou/uL (0.11-0.59); #Neutrophils 8.2 thou/uL (1.40-6.50); %Basophils 0.6 % (0.0-1.0); %Eosinophils 4.5 % (0.0-10.0); %Lymphocytes 11.2 % (21.0-51.0); %Monocytes 10.9 % (0.0-10.0); %Neutrophils 72.9 % (42.0-75.0); Mean Corpuscular HGB CONC 34.7 g/dL (32.0-36.0); Mean Corpuscular Hemoglobin 34.9 pg (27.0-31.0); Mean Platelet Volume 9.1 fL (7.4-10.4); Platelet Count 258 thou/uL (130-400); RBC Distribution Width 16.6 % (11.5-14.5); Red Blood Cell (RBC) Count 2.88 mill/uL (4.20-5.40); White Blood Cell (WBC) Count 11.3 thou/uL (4.8-10.8)
[2022-06-17 05:36] LABS: Anion Gap 13 mmol/L (10-20); BUN (Urea Nitrogen) 33 mg/dL (9.8-20.1); Calc. Creatinine Clearance 24 mL/min (70-130); Calcium 8.1 mg/dL (7.8-10.44); Carbon Dioxide 24 mmol/L (22-29); Chloride 106 mmol/L (98-107); Estimated GFR 19; Glucose 208 mg/dL (70-105); Potassium 3.6 mmol/L (3.5-5.1); Sodium 139 mmol/L (136-145)
[2022-06-17] MEDS: Ascorbic Acid 500 mg Chewable Tablet PO SCH (10:25)
[2022-06-17] MEDS: Losartan 25 MG TAB PO SCH (10:25)
[2022-06-17] MEDS: Heparin 5,000 UNITS/ML VIAL SC SCH ×3 (10:25→21:13)
[2022-06-17] MEDS: NIFEdipine XL 90 MG TAB PO SCH (10:25)
[2022-06-17] MEDS: Pantoprazole 40 MG VIAL IVP SCH (10:26)
[2022-06-17] MEDS: Insulin Glargine 30 UNITS/0.3 ML VIAL SC SCH (10:27)
[2022-06-17] MEDS: Insulin Regular 300 UNITS/3 ML VIAL SC PRN ×2 (12:12→16:54)
[2022-06-17 17:38] LABS: Kappa Lambda Light Chain Ratio 2.49 (0.26-1.65); Kappa Light Chains 38.3 mg/L (3.3-19.4); Lambda Light Chain 15.4 mg/L (5.7-26.3)
[2022-06-17] MEDS: Atorvastatin Calcium 40 MG TAB PO SCH (21:13)
[2022-06-17] MEDS: HumaLOG 300 UNITS/3 ML VIAL SC PRN (21:14)
[2022-06-18 05:26] LABS: #Basophils 0.1 thou/uL (0.0-0.2); #Eosinphils 0.5 thou/uL (0.0-0.7); #Lymphocytes 1.6 thou/uL (1.20-3.40); #Monocytes 1.2 thou/uL (0.11-0.59); #Neutrophils 9.1 thou/uL (1.40-6.50); %Basophils 0.5 % (0.0-1.0); %Eosinophils 4.2 % (0.0-10.0); %Lymphocytes 12.8 % (21.0-51.0); %Monocytes 9.6 % (0.0-10.0); %Neutrophils 72.9 % (42.0-75.0); Hemoglobin 10.3 g/dL (12.0-16.0); Mean Corpuscular HGB CONC 33.3 g/dL (32.0-36.0); Mean Corpuscular Hemoglobin 33.2 pg (27.0-31.0); Mean Corpuscular Volume 99.6 fL (78.0-98.0); Mean Platelet Volume 9.4 fL (7.4-10.4); Platelet Count 281 thou/uL (130-400); RBC Distribution Width 16.5 % (11.5-14.5); Red Blood Cell (RBC) Count 3.12 mill/uL (4.20-5.40); White Blood Cell (WBC) Count 12.5 thou/uL (4.8-10.8)
[2022-06-18 05:34] LABS: Anion Gap 11 mmol/L (10-20); BUN (Urea Nitrogen) 32 mg/dL (9.8-20.1); Calc. Creatinine Clearance 24 mL/min (70-130); Calcium 8.2 mg/dL (7.8-10.44); Carbon Dioxide 27 mmol/L (22-29); Chloride 105 mmol/L (98-107); Estimated GFR 20; Glucose 156 mg/dL (70-105); Potassium 3.5 mmol/L (3.5-5.1); Sodium 139 mmol/L (136-145)
[2022-06-18] MEDS: Ascorbic Acid 500 mg Chewable Tablet PO SCH (08:33)
[2022-06-18] MEDS: Losartan 25 MG TAB PO SCH (08:33)
[2022-06-18] MEDS: Heparin 5,000 UNITS/ML VIAL SC SCH ×3 (08:34→20:45)
[2022-06-18] MEDS: NIFEdipine XL 90 MG TAB PO SCH (08:34)
[2022-06-18] MEDS: Pantoprazole 40 MG VIAL IVP SCH (08:34)
[2022-06-18] MEDS: Insulin Glargine 30 UNITS/0.3 ML VIAL SC SCH (08:53)
[2022-06-18] MEDS: Metoprolol Tartrate 25 MG TAB PO SCH (20:45)
[2022-06-18] MEDS: Atorvastatin Calcium 40 MG TAB PO SCH (20:45)
[2022-06-19 05:37] LABS: #Basophils 0.1 thou/uL (0.0-0.2); #Eosinphils 0.4 thou/uL (0.0-0.7); #Lymphocytes 2.1 thou/uL (1.20-3.40); #Monocytes 0.9 thou/uL (0.11-0.59); #Neutrophils 7.1 thou/uL (1.40-6.50); %Basophils 0.8 % (0.0-1.0); %Eosinophils 3.7 % (0.0-10.0); %Lymphocytes 19.4 % (21.0-51.0); %Monocytes 8.9 % (0.0-10.0); %Neutrophils 67.2 % (42.0-75.0); Hemoglobin 10.7 g/dL (12.0-16.0); Mean Corpuscular HGB CONC 31.9 g/dL (32.0-36.0); Mean Platelet Volume 9.5 fL (7.4-10.4); Platelet Count 324 thou/uL (130-400); RBC Distribution Width 16.7 % (11.5-14.5); Red Blood Cell (RBC) Count 3.35 mill/uL (4.20-5.40); White Blood Cell (WBC) Count 10.5 thou/uL (4.8-10.8)
[2022-06-19 06:00] LABS: Anion Gap 14 mmol/L (10-20); BUN (Urea Nitrogen) 32 mg/dL (9.8-20.1); Calc. Creatinine Clearance 25 mL/min (70-130); Calcium 8.4 mg/dL (7.8-10.44); Carbon Dioxide 23 mmol/L (22-29); Chloride 107 mmol/L (98-107); Estimated GFR 21; Glucose 117 mg/dL (70-105); Potassium 3.5 mmol/L (3.5-5.1); Sodium 140 mmol/L (136-145)
[2022-06-19] MEDS: Pantoprazole 40 MG VIAL IVP SCH (08:53)
[2022-06-19] MEDS: NIFEdipine XL 90 MG TAB PO SCH (08:54)
[2022-06-19] MEDS: Losartan 25 MG TAB PO SCH (08:54)
[2022-06-19] MEDS: Ascorbic Acid 500 mg Chewable Tablet PO SCH (08:54)
[2022-06-19] MEDS: Metoprolol Tartrate 25 MG TAB PO SCH ×2 (08:54→21:59)
[2022-06-19] MEDS: Heparin 5,000 UNITS/ML VIAL SC SCH ×3 (08:54→21:59)
[2022-06-19] MEDS: Insulin Glargine 30 UNITS/0.3 ML VIAL SC SCH (08:55)
[2022-06-19] MEDS: Atorvastatin Calcium 40 MG TAB PO SCH (21:59)
[2022-06-19] MEDS ORDERED: Labetalol HCl 100 MG/20 ML VIAL SLOW IVP PRN (23:56)
[2022-06-20 05:35] LABS: #Basophils 0.1 thou/uL (0.0-0.2); #Eosinphils 0.3 thou/uL (0.0-0.7); #Lymphocytes 1.9 thou/uL (1.20-3.40); #Monocytes 1.2 thou/uL (0.11-0.59); #Neutrophils 7.7 thou/uL (1.40-6.50); %Basophils 0.7 % (0.0-1.0); %Eosinophils 2.3 % (0.0-10.0); %Monocytes 10.5 % (0.0-10.0); %Neutrophils 69.5 % (42.0-75.0); Hemoglobin 10.1 g/dL (12.0-16.0); Mean Corpuscular HGB CONC 33.3 g/dL (32.0-36.0); Mean Corpuscular Hemoglobin 33.5 pg (27.0-31.0); Mean Platelet Volume 9.7 fL (7.4-10.4); Platelet Count 360 thou/uL (130-400); RBC Distribution Width 16.4 % (11.5-14.5); Red Blood Cell (RBC) Count 3.01 mill/uL (4.20-5.40)
[2022-06-20 05:47] LABS: Anion Gap 15 mmol/L (10-20); BUN (Urea Nitrogen) 36 mg/dL (9.8-20.1); Calc. Creatinine Clearance 24 mL/min (70-130); Calcium 8.3 mg/dL (7.8-10.44); Carbon Dioxide 23 mmol/L (22-29); Chloride 108 mmol/L (98-107); Estimated GFR 20; Glucose 128 mg/dL (70-105); Potassium 3.5 mmol/L (3.5-5.1); Sodium 142 mmol/L (136-145)
[2022-06-20] MEDS: Ascorbic Acid 500 mg Chewable Tablet PO SCH (08:34)
[2022-06-20] MEDS: Folic Acid 1 MG TAB PO SCH (08:34)
[2022-06-20] MEDS: Heparin 5,000 UNITS/ML VIAL SC SCH ×3 (08:34→20:46)
[2022-06-20] MEDS: Insulin Glargine 30 UNITS/0.3 ML VIAL SC SCH (08:34)
[2022-06-20] MEDS: Metoprolol Tartrate 25 MG TAB PO SCH (08:35)
[2022-06-20] MEDS: NIFEdipine XL 90 MG TAB PO SCH (08:35)
[2022-06-20] MEDS: Losartan 25 MG TAB PO SCH (08:35)
[2022-06-20] MEDS: Pantoprazole 40 MG VIAL IVP SCH (08:35)
[2022-06-20] MEDS: Polyethylene Glycol 3350 17 GM Packet PO SCH (08:36)
[2022-06-20] MEDS ORDERED: Metoprolol Tartrate 25 MG TAB PO SCH (09:45)
[2022-06-20] MEDS: Metoprolol Tartrate 50 MG TAB PO SCH (20:46)
[2022-06-20] MEDS: Atorvastatin Calcium 40 MG TAB PO SCH (20:46)
[2022-06-20 20:58] VITALS: BMI 27.9
[2022-06-21 05:26] LABS: #Basophils 0.1 thou/uL (0.0-0.2); #Eosinphils 0.4 thou/uL (0.0-0.7); #Lymphocytes 1.5 thou/uL (1.20-3.40); #Monocytes 1.2 thou/uL (0.11-0.59); #Neutrophils 6.9 thou/uL (1.40-6.50); %Basophils 0.7 % (0.0-1.0); %Eosinophils 3.6 % (0.0-10.0); %Lymphocytes 15.2 % (21.0-51.0); %Neutrophils 68.4 % (42.0-75.0); Hemoglobin 10.6 g/dL (12.0-16.0); Mean Corpuscular HGB CONC 31.3 g/dL (32.0-36.0); Mean Corpuscular Hemoglobin 31.8 pg (27.0-31.0); Mean Platelet Volume 9.6 fL (7.4-10.4); Platelet Count 398 thou/uL (130-400); RBC Distribution Width 16.5 % (11.5-14.5); Red Blood Cell (RBC) Count 3.32 mill/uL (4.20-5.40)
[2022-06-21 05:29] LABS: Anion Gap 8 mmol/L (10-20); BUN (Urea Nitrogen) 36 mg/dL (9.8-20.1); Calc. Creatinine Clearance 22 mL/min (70-130); Carbon Dioxide 27 mmol/L (22-29); Chloride 108 mmol/L (98-107); Potassium 3.3 mmol/L (3.5-5.1); Sodium 140 mmol/L (136-145)
[2022-06-21 05:30] LABS: Calcium 8.1 mg/dL (7.8-10.44); Estimated GFR 19; Glucose 172 mg/dL (70-105)
[2022-06-21] MEDS ORDERED: Potassium Chloride 20 MEQ TAB PO SCH (08:00)
[2022-06-21] MEDS: Furosemide 20 MG TAB PO SCH (09:22)
[2022-06-21] MEDS: Ascorbic Acid 500 mg Chewable Tablet PO SCH (09:22)
[2022-06-21] MEDS: NIFEdipine XL 90 MG TAB PO SCH (09:23)
[2022-06-21] MEDS: Metoprolol Tartrate 50 MG TAB PO SCH ×2 (09:23→20:41)
[2022-06-21] MEDS: Folic Acid 1 MG TAB PO SCH (09:24)
[2022-06-21] MEDS: Polyethylene Glycol 3350 17 GM Packet PO SCH (09:24)
[2022-06-21] MEDS: Insulin Glargine 30 UNITS/0.3 ML VIAL SC SCH (09:25)
[2022-06-21] MEDS: Pantoprazole 40 MG VIAL IVP SCH (09:26)
[2022-06-21] MEDS: Heparin 5,000 UNITS/ML VIAL SC SCH ×3 (09:31→20:41)
[2022-06-21] MEDS: Atorvastatin Calcium 40 MG TAB PO SCH (20:41)
[2022-06-22 04:56] LABS: #Basophils 0.1 thou/uL (0.0-0.2); #Eosinphils 0.4 thou/uL (0.0-0.7); #Lymphocytes 1.5 thou/uL (1.20-3.40); #Monocytes 1.4 thou/uL (0.11-0.59); #Neutrophils 8.7 thou/uL (1.40-6.50); %Basophils 0.6 % (0.0-1.0); %Eosinophils 3.1 % (0.0-10.0); %Lymphocytes 12.7 % (21.0-51.0); %Monocytes 11.4 % (0.0-10.0); %Neutrophils 72.2 % (42.0-75.0); Mean Corpuscular HGB CONC 32.4 g/dL (32.0-36.0); Mean Corpuscular Hemoglobin 32.5 pg (27.0-31.0); Mean Platelet Volume 9.3 fL (7.4-10.4); Platelet Count 400 thou/uL (130-400); RBC Distribution Width 16.2 % (11.5-14.5); Red Blood Cell (RBC) Count 3.38 mill/uL (4.20-5.40); White Blood Cell (WBC) Count 12.1 thou/uL (4.8-10.8)
[2022-06-22 05:17] LABS: Anion Gap 11 mmol/L (10-20); BUN (Urea Nitrogen) 34 mg/dL (9.8-20.1); Calc. Creatinine Clearance 24 mL/min (70-130); Calcium 8.1 mg/dL (7.8-10.44); Carbon Dioxide 25 mmol/L (22-29); Chloride 110 mmol/L (98-107); Estimated GFR 20; Glucose 136 mg/dL (70-105); Potassium 3.7 mmol/L (3.5-5.1); Sodium 142 mmol/L (136-145)
[2022-06-22] MEDS: Polyethylene Glycol 3350 17 GM Packet PO SCH (08:13)
[2022-06-22 08:14] LABS: QuantiFERON-TB Gold Plus Negative (Negative)
[2022-06-22] MEDS: Furosemide 20 MG TAB PO SCH (09:23)
[2022-06-22] MEDS: Metoprolol Tartrate 50 MG TAB PO SCH (09:23)
[2022-06-22] MEDS: NIFEdipine XL 90 MG TAB PO SCH (09:23)
[2022-06-22] MEDS: Folic Acid 1 MG TAB PO SCH (09:23)
[2022-06-22] MEDS: Ascorbic Acid 500 mg Chewable Tablet PO SCH (09:24)
[2022-06-22] MEDS: Heparin 5,000 UNITS/ML VIAL SC SCH (09:24)
[2022-06-22] MEDS: Insulin Glargine 30 UNITS/0.3 ML VIAL SC SCH (09:24)
[2022-06-22] MEDS: Ondansetron PF 4 MG/2 ML Vial IVP PRN (09:29)
[2022-06-22] MEDS ORDERED: hydrALAZINE 25 MG TAB PO SCH ×2 (10:00→15:00)
[2022-06-22 11:54] VITALS: BP 134/79; TEMP 97.8
== END 2022-06-22 14:43 | disposition swing bed (61) | DRG 682 ==
LOC: T4-B 14:47 → IMCU/EMU 06-11 03:02 → NEURO 06-17 23:00
PROVIDERS: ADMIT Family Medicine; ATTEND Family Medicine
PROC: 5A09457 Assistance with Respiratory Ventilation, 24-96 Consecutive Hours, Continuous Positive Airway Pressure (ICD-10-PCS; 2022-06-11)
PROC: 5A1D70Z Performance of Urinary Filtration, Intermittent, Less than 6 Hours Per Day (ICD-10-PCS; 2022-06-11)
PROC: 06HY33Z Insertion of Infusion Device into Lower Vein, Percutaneous Approach (ICD-10-PCS; principal; 2022-06-12)
PROC: 30233N1 Transfusion of Nonautologous Red Blood Cells into Peripheral Vein, Percutaneous Approach (ICD-10-PCS; 2022-06-12)
PROC: 5A1D70Z Performance of Urinary Filtration, Intermittent, Less than 6 Hours Per Day (ICD-10-PCS; 2022-06-12)
DX: N17.9 Acute kidney failure, unspecified (principal); I50.33 Acute on chronic diastolic (congestive) heart failure; J96.01 Acute respiratory failure with hypoxia; I13.0 Hypertensive heart and chronic kidney disease with heart failure and stage 1 through stage 4 chronic kidney disease, or unspecified chronic kidney disease; E87.2 Acidosis; N39.0 Urinary tract infection, site not specified; N12 Tubulo-interstitial nephritis, not specified as acute or chronic; N18.4 Chronic kidney disease, stage 4 (severe); E11.22 Type 2 diabetes mellitus with diabetic chronic kidney disease; R33.9 Retention of urine, unspecified; R53.81 Other malaise; E78.5 Hyperlipidemia, unspecified; D47.2 Monoclonal gammopathy; D63.1 Anemia in chronic kidney disease; E87.5 Hyperkalemia; I27.81 Cor pulmonale (chronic); I27.20 Pulmonary hypertension, unspecified; Z88.5 Allergy status to narcotic agent; Z79.4 Long term (current) use of insulin; Z79.899 Other long term (current) drug therapy; Z79.51 Long term (current) use of inhaled steroids; Z83.3 Family history of diabetes mellitus; Z82.49 Family history of ischemic heart disease and other diseases of the circulatory system; Z90.710 Acquired absence of both cervix and uterus; Z90.89 Acquired absence of other organs
CPT/HCPCS: 36415; 36416; 36430; 36600; 71045; 71250; 77075; 78472; 80048; 80053; 82570; 82668; 82805; 83735; 83880; 83883; 83970; 84100; 84145; 84156; 84484; 85014; 85018; 85025; 85046; 85049; 85379; 85730; 86038; 86225; 86334; 86335; 86480; 86704; 86850; 86900; 86901; 87340; 90935; 93005; 93010; 93306; 93970; 94640; 94660; A9604; C9113; G0257; J0360; J0692; J0696; J1642; J1644; J1815; J1940; J2405; J3490; J7611; P9016; P9045; Q0162

== ENCOUNTER 2022-09-06 15:11 | Emergency (ER) | payer OTHER ==
[2022-09-06 16:27] LABS: #Basophils 0.1 thou/uL (0.0-0.2); #Eosinphils 0.3 thou/uL (0.0-0.7); #Lymphocytes 1.9 thou/uL (1.20-3.40); #Monocytes 0.8 thou/uL (0.11-0.59); #Neutrophils 6.6 thou/uL (1.40-6.50); %Basophils 0.6 % (0.0-1.0); %Monocytes 8.6 % (0.0-10.0); %Neutrophils 67.9 % (42.0-75.0); Hemoglobin 8.8 g/dL (12.0-16.0); Mean Corpuscular HGB CONC 31.4 g/dL (32.0-36.0); Mean Corpuscular Hemoglobin 33.3 pg (27.0-31.0); Mean Platelet Volume 8.8 fL (7.4-10.4); Platelet Count 417 10x3/uL (130-400); RBC Distribution Width 16.5 % (11.5-14.5); Red Blood Cell (RBC) Count 2.63 mill/uL (4.20-5.40); White Blood Cell (WBC) Count 9.7 10x3/uL (4.8-10.8)
[2022-09-06] MEDS ORDERED: Metoprolol Tartrate 50 MG TAB ONE ×2 (16:31→21:50)
[2022-09-06] MEDS ORDERED: Nitroglycerin 2% Ointment 1 INCH/1 GM Packet ONE (16:31)
[2022-09-06] MEDS ORDERED: Furosemide 40 MG/4 ML VIAL ONE (16:31)
[2022-09-06 16:40] LABS: Anisocytosis SLIGHT = 6-15 cells (100X) (0-5/hpf); MDiff Complete? YES; Macrocytosis SLIGHT = 6-15 cells (100X) (0-5/hpf); Platelet Morphology Comment Appears Increased; Polychromasia SLIGHT = 2-3 cells (100X) (0-2/hpf); Schistocytes SLIGHT = 2-5 cells (100X) (0-1/hpf)
[2022-09-06 16:48] LABS: ALT (SGPT) 27 U/L (8-55); AST (SGOT) 20 U/L (5-34); Albumin 1.8 g/dL (3.5-5.0); Alkaline Phosphatase 438 U/L (40-110); Anion Gap 13 mmol/L (10-20); BUN (Urea Nitrogen) 42 mg/dL (9.8-20.1); Bilirubin, Total Less than 0.2 mg/dL (0.2-1.2); Calc. Creatinine Clearance 0 mL/min (70-130); Calcium 7.5 mg/dL (7.8-10.44); Carbon Dioxide 17 mmol/L (22-29); Chloride 116 mmol/L (98-107); Estimated GFR 15; Globulin 2.9 g/dL (2.4-3.5); Glucose 150 mg/dL (70-105); Potassium 3.9 mmol/L (3.5-5.1); Protein, Total 4.7 g/dL (6.0-8.3); Sodium 142 mmol/L (136-145)
[2022-09-07 00:24] LABS: Troponin I Less than 0.010 ng/mL (< 0.028)
[2022-09-07] MEDS ORDERED: Ondansetron PF 4 MG/2 ML Vial IVP PRN (06:15)
[2022-09-07] MEDS ORDERED: Ondansetron ODT 4 MG TAB SL PRN (06:15)
== END 2022-09-07 10:01 | disposition short-term general hospital (02) ==
LOC: ERS 15:11 → UNDOADMOB 23:21 → ERHOLD 23:21 → ERS 09-07 10:01
DX: R07.9 Chest pain, unspecified (principal); I13.0 Hypertensive heart and chronic kidney disease with heart failure and stage 1 through stage 4 chronic kidney disease, or unspecified chronic kidney disease; N18.9 Chronic kidney disease, unspecified; I50.9 Heart failure, unspecified; E11.22 Type 2 diabetes mellitus with diabetic chronic kidney disease; E78.5 Hyperlipidemia, unspecified; Z79.899 Other long term (current) drug therapy
CPT/HCPCS: 36415; 71045; 80053; 83880; 84484; 85025; 93005; 96374; 96375; J1940

== ENCOUNTER 2022-09-22 08:29 | Inpatient (IN) | payer OTHER ==
[2022-09-22 13:37] VITALS: BMI 28.3
[2022-09-22] MEDS ORDERED: Dextrose 50% Abboject 50 ML SYRINGE SLOW IVP PRN (13:56)
[2022-09-22] MEDS ORDERED: Ondansetron ODT 4 MG TAB PO PRN (13:56)
[2022-09-22] MEDS ORDERED: Dextrose 5% in Water 1,000 ML IV PRN (13:56)
[2022-09-22] MEDS ORDERED: HumaLOG 300 UNITS/3 ML VIAL SC PRN ×2 (14:02)
[2022-09-22] MEDS ORDERED: Albuterol Sulfate 2.5 mg/3 ml Neb NEB PRN (14:06)
[2022-09-22] MEDS: Heparin 5,000 UNITS/ML VIAL SC SCH ×2 (14:57→20:10)
[2022-09-22] MEDS ORDERED: EPOETIN ALFA-EPBX (ESRD) 10,000 UNIT/ML VIAL SC SCH ×2 (15:00→15:30)
[2022-09-22 16:09] LABS: HBSAB Concentration Less than 8.00 mIU/mL; HBSAg Index 0.41 S/CO (0-0.99); Hep B Core Total Ab Non-Reactive (NonReactive); Hep B Core Total Index 0.09 S/CO (0-0.79); Hep B Surf AB Non-Reactive (NonReactive); Hep B Surf Ag Non-Reactive S/CO (NonReactive); Hep C IgG Ab Non-Reactive (NonReactive); Hep C Index 0.06 S/CO (0-0.79)
[2022-09-22] MEDS: Atorvastatin Calcium 40 MG TAB PO SCH (19:43)
[2022-09-22] MEDS: Sodium Bicarbonate Tab 325 MG TAB PO SCH (19:44)
[2022-09-22] MEDS: Metoprolol Tartrate 50 MG TAB PO SCH (19:44)
[2022-09-23] MEDS: Metoprolol Tartrate 50 MG TAB PO SCH ×2 (05:33→23:08)
[2022-09-23] MEDS: Acetaminophen 325 MG TAB PO PRN ×2 (05:40→11:40)
[2022-09-23] MEDS ORDERED: Protamine Sulfate 50 MG/5 ML VIAL ONE (07:16)
[2022-09-23] MEDS ORDERED: Bupivacaine/Epinephrine 0.25% 30 ML VIAL ONE (07:16)
[2022-09-23] MEDS ORDERED: Heparin 5,000 UNITS/ML VIAL ONE (07:16)
[2022-09-23] MEDS ORDERED: Heparin 10,000 UNITS/ 10 ML VIAL ONE ×2 (07:16→10:29)
[2022-09-23] MEDS ORDERED: Lidocaine 1% (PF) 30 ML VIAL ONE (07:16)
[2022-09-23] MEDS ORDERED: Famotidine/PF 20 mg/2ml Vial ONE (07:26)
[2022-09-23] MEDS ORDERED: FENTANYL 50 MCG/ML 1 ML VIAL ONE (07:26)
[2022-09-23] MEDS ORDERED: CEFAZOLIN 2 GM in Sodium Chloride 0.9% 100 ML IVPB SCH (08:00)
[2022-09-23] MEDS ORDERED: PROPOFOL 200 MG/20 ML VIAL ONE (08:09)
[2022-09-23] MEDS ORDERED: Lidocaine 1% PF 5 ML VIAL ONE (08:09)
[2022-09-23] MEDS ORDERED: Ondansetron PF 4 MG/2 ML Vial ONE (08:09)
[2022-09-23] MEDS ORDERED: Metoclopramide HCl 10 MG/2 ML VIAL ONE (08:09)
[2022-09-23] MEDS: Heparin 5,000 UNITS/ML VIAL SC SCH ×3 (08:34→23:08)
[2022-09-23] MEDS ORDERED: NIFEdipine XL 60 MG TAB PO SCH (09:00)
[2022-09-23] MEDS ORDERED: Ondansetron HCl/PF 4 MG/2 ML Vial IVP PRN (09:03)
[2022-09-23] MEDS ORDERED: Fentanyl 100 MCG/2 ML VIAL ONE (09:21)
[2022-09-23] MEDS: Sodium Bicarbonate Tab 325 MG TAB PO SCH ×2 (10:32→22:41)
[2022-09-23] MEDS: Magnesium Oxide 400 MG TAB PO SCH (12:16)
[2022-09-23] MEDS: Calcium Carbonate 500 MG ChewTAB PO SCH (12:16)
[2022-09-23 12:17] LABS: #Basophils 0.1 thou/uL (0.0-0.2); #Eosinphils 0.4 thou/uL (0.0-0.7); #Lymphocytes 1.6 thou/uL (1.20-3.40); #Monocytes 0.7 thou/uL (0.11-0.59); #Neutrophils 4.6 thou/uL (1.40-6.50); %Basophils 0.9 % (0.0-1.0); %Eosinophils 5.5 % (0.0-10.0); %Lymphocytes 22.1 % (21.0-51.0); %Monocytes 9.5 % (0.0-10.0); Hemoglobin 8.9 g/dL (12.0-16.0); Mean Corpuscular HGB CONC 32.1 g/dL (32.0-36.0); Mean Corpuscular Hemoglobin 34.7 pg (27.0-31.0); Mean Platelet Volume 8.4 fL (7.4-10.4); Platelet Count 381 10x3/uL (130-400); RBC Distribution Width 15.5 % (11.5-14.5); Red Blood Cell (RBC) Count 2.58 mill/uL (4.20-5.40); White Blood Cell (WBC) Count 7.4 10x3/uL (4.8-10.8)
[2022-09-23 12:35] LABS: ALT (SGPT) 22 U/L (8-55); AST (SGOT) 22 U/L (5-34); Albumin 1.8 g/dL (3.5-5.0); Alkaline Phosphatase 332 U/L (40-110); Anion Gap 14 mmol/L (10-20); BUN (Urea Nitrogen) 49 mg/dL (9.8-20.1); Bilirubin, Total Less than 0.2 mg/dL (0.2-1.2); Calc. Creatinine Clearance 17 mL/min (70-130); Calcium 7.3 mg/dL (7.8-10.44); Carbon Dioxide 14 mmol/L (22-29); Chloride 113 mmol/L (98-107); Estimated GFR 12; Globulin 3.2 g/dL (2.4-3.5); Glucose 81 mg/dL (70-105); Potassium 4.6 mmol/L (3.5-5.1); Sodium 136 mmol/L (136-145)
[2022-09-23 16:07] LABS: Bacteria/HPF 4+ HPF (None Seen); Squamous Epithelial 0-3 HPF (0-3)
[2022-09-23 16:18] LABS: Transitional Epithelial 0-3 HPF (None Seen)
[2022-09-23] MEDS: Atorvastatin Calcium 40 MG TAB PO SCH (22:41)
[2022-09-24] MEDS ORDERED: hydrALAZINE 20 MG/ML VIAL SLOW IVP SCH (04:00)
[2022-09-24 06:16] LABS: #Basophils 0.1 thou/uL (0.0-0.2); #Eosinphils 0.3 thou/uL (0.0-0.7); #Lymphocytes 1.7 thou/uL (1.20-3.40); #Monocytes 0.8 thou/uL (0.11-0.59); #Neutrophils 6.1 thou/uL (1.40-6.50); %Basophils 0.8 % (0.0-1.0); %Eosinophils 3.1 % (0.0-10.0); %Lymphocytes 19.2 % (21.0-51.0); %Neutrophils 67.9 % (42.0-75.0); Hemoglobin 10.2 g/dL (12.0-16.0); Mean Corpuscular HGB CONC 32.7 g/dL (32.0-36.0); Mean Corpuscular Hemoglobin 34.5 pg (27.0-31.0); Mean Platelet Volume 8.3 fL (7.4-10.4); Platelet Count 403 10x3/uL (130-400); RBC Distribution Width 15.6 % (11.5-14.5); Red Blood Cell (RBC) Count 2.95 mill/uL (4.20-5.40); White Blood Cell (WBC) Count 8.9 10x3/uL (4.8-10.8)
[2022-09-24 06:41] LABS: Anion Gap 11 mmol/L (10-20); BUN (Urea Nitrogen) 37 mg/dL (9.8-20.1); Calc. Creatinine Clearance 21 mL/min (70-130); Calcium 7.7 mg/dL (7.8-10.44); Carbon Dioxide 19 mmol/L (22-29); Chloride 109 mmol/L (98-107); Estimated GFR 15; Glucose 93 mg/dL (70-105); Potassium 4.1 mmol/L (3.5-5.1); Sodium 135 mmol/L (136-145)
[2022-09-24] MEDS: Metoprolol Tartrate 50 MG TAB PO SCH ×2 (07:19→20:51)
[2022-09-24] MEDS ORDERED: NIFEdipine XL 30 MG TAB PO SCH ×2 (08:00→09:00)
[2022-09-24] MEDS ORDERED: Heparin 10,000 UNITS/ 10 ML VIAL ONE (10:22)
[2022-09-24] MEDS ORDERED: Iopamidol-370 76% 500 ML 1 ML ONE (10:56)
[2022-09-24] MEDS: Heparin 5,000 UNITS/ML VIAL SC SCH ×3 (11:25→20:50)
[2022-09-24] MEDS: Sodium Bicarbonate Tab 325 MG TAB PO SCH ×2 (11:25→20:50)
[2022-09-24] MEDS: Calcium Carbonate 500 MG ChewTAB PO SCH (15:28)
[2022-09-24] MEDS: Magnesium Oxide 400 MG TAB PO SCH (15:29)
[2022-09-24] MEDS: Atorvastatin Calcium 40 MG TAB PO SCH (20:50)
[2022-09-24] MEDS: Insulin Glargine 30 UNITS/0.3 ML VIAL SC SCH (20:51)
[2022-09-25 07:20] LABS: #Eosinphils 0.3 thou/uL (0.0-0.7); #Lymphocytes 2.1 thou/uL (1.20-3.40); #Monocytes 0.7 thou/uL (0.11-0.59); #Neutrophils 4.8 thou/uL (1.40-6.50); %Basophils 0.5 % (0.0-1.0); %Eosinophils 4.1 % (0.0-10.0); %Lymphocytes 26.3 % (21.0-51.0); %Monocytes 8.9 % (0.0-10.0); %Neutrophils 60.2 % (42.0-75.0); Hemoglobin 9.6 g/dL (12.0-16.0); Mean Corpuscular HGB CONC 32.8 g/dL (32.0-36.0); Mean Corpuscular Hemoglobin 34.7 pg (27.0-31.0); Mean Platelet Volume 8.4 fL (7.4-10.4); Platelet Count 352 10x3/uL (130-400); RBC Distribution Width 16.2 % (11.5-14.5); Red Blood Cell (RBC) Count 2.77 mill/uL (4.20-5.40)
[2022-09-25] MEDS ORDERED: NIFEdipine XL 30 MG TAB PO SCH (09:00)
[2022-09-25] MEDS: Magnesium Oxide 400 MG TAB PO SCH (09:15)
[2022-09-25] MEDS: Metoprolol Tartrate 50 MG TAB PO SCH ×2 (09:15→20:51)
[2022-09-25] MEDS: Calcium Carbonate 500 MG ChewTAB PO SCH (09:15)
[2022-09-25] MEDS: NIFEdipine XL 30 MG TAB PO SCH ×2 (09:15→20:51)
[2022-09-25] MEDS: Sodium Bicarbonate Tab 325 MG TAB PO SCH ×2 (09:15→20:50)
[2022-09-25] MEDS: Heparin 5,000 UNITS/ML VIAL SC SCH ×3 (09:18→20:50)
[2022-09-25] MEDS: Acetaminophen 325 MG TAB PO PRN (09:23)
[2022-09-25] MEDS ORDERED: FLU VACC QS2022-23(6MOS UP)/PF 60 MCG/0.5 ML SYRINGE IM ONE (13:45)
[2022-09-25] MEDS: Atorvastatin Calcium 40 MG TAB PO SCH (20:50)
[2022-09-25] MEDS: Insulin Glargine 30 UNITS/0.3 ML VIAL SC SCH (20:52)
[2022-09-26 06:33] LABS: #Basophils 0.1 thou/uL (0.0-0.2); #Eosinphils 0.4 thou/uL (0.0-0.7); #Lymphocytes 1.6 thou/uL (1.20-3.40); #Monocytes 0.7 thou/uL (0.11-0.59); #Neutrophils 5.1 thou/uL (1.40-6.50); %Basophils 0.7 % (0.0-1.0); %Lymphocytes 20.5 % (21.0-51.0); %Monocytes 8.8 % (0.0-10.0); Hemoglobin 9.6 g/dL (12.0-16.0); Mean Corpuscular HGB CONC 33.4 g/dL (32.0-36.0); Mean Corpuscular Hemoglobin 34.7 pg (27.0-31.0); Mean Platelet Volume 8.4 fL (7.4-10.4); Platelet Count 331 10x3/uL (130-400); RBC Distribution Width 15.8 % (11.5-14.5); Red Blood Cell (RBC) Count 2.77 mill/uL (4.20-5.40); White Blood Cell (WBC) Count 7.9 10x3/uL (4.8-10.8)
[2022-09-26] MEDS: Metoprolol Tartrate 50 MG TAB PO SCH ×2 (09:43→20:00)
[2022-09-26] MEDS: Sodium Bicarbonate Tab 325 MG TAB PO SCH ×2 (09:43→20:01)
[2022-09-26] MEDS: Magnesium Oxide 400 MG TAB PO SCH (09:43)
[2022-09-26] MEDS: Calcium Carbonate 500 MG ChewTAB PO SCH (09:43)
[2022-09-26] MEDS: NIFEdipine XL 30 MG TAB PO SCH ×2 (09:44→20:00)
[2022-09-26] MEDS: Heparin 5,000 UNITS/ML VIAL SC SCH ×3 (09:49→20:03)
[2022-09-26] MEDS ORDERED: Heparin 10,000 UNITS/ 10 ML VIAL ONE (10:20)
[2022-09-26] MEDS: Atorvastatin Calcium 40 MG TAB PO SCH (20:01)
[2022-09-26] MEDS: Insulin Glargine 30 UNITS/0.3 ML VIAL SC SCH (20:01)
[2022-09-27 06:31] LABS: #Basophils 0.1 thou/uL (0.0-0.2); #Eosinphils 0.4 thou/uL (0.0-0.7); #Lymphocytes 1.7 thou/uL (1.20-3.40); #Monocytes 0.7 thou/uL (0.11-0.59); #Neutrophils 4.6 thou/uL (1.40-6.50); %Basophils 0.7 % (0.0-1.0); %Eosinophils 5.9 % (0.0-10.0); %Lymphocytes 22.2 % (21.0-51.0); %Neutrophils 61.2 % (42.0-75.0); Hemoglobin 9.4 g/dL (12.0-16.0); Mean Corpuscular HGB CONC 34.4 g/dL (32.0-36.0); Mean Corpuscular Hemoglobin 35.4 pg (27.0-31.0); Mean Platelet Volume 8.6 fL (7.4-10.4); Platelet Count 308 10x3/uL (130-400); RBC Distribution Width 15.6 % (11.5-14.5); Red Blood Cell (RBC) Count 2.66 mill/uL (4.20-5.40); White Blood Cell (WBC) Count 7.4 10x3/uL (4.8-10.8)
[2022-09-27] MEDS: NIFEdipine XL 30 MG TAB PO SCH ×3 (09:57→22:26)
[2022-09-27] MEDS: Sodium Bicarbonate Tab 325 MG TAB PO SCH ×2 (09:57→22:27)
[2022-09-27] MEDS: Magnesium Oxide 400 MG TAB PO SCH (09:57)
[2022-09-27] MEDS: Heparin 5,000 UNITS/ML VIAL SC SCH ×3 (09:57→22:27)
[2022-09-27] MEDS: Metoprolol Tartrate 50 MG TAB PO SCH ×2 (09:57→22:27)
[2022-09-27] MEDS: Calcium Carbonate 500 MG ChewTAB PO SCH (09:58)
[2022-09-27] MEDS ORDERED: Tuberculin PPD 0.1 ML VIAL I-DERMAL SCH (11:15)
[2022-09-27 16:37] LABS: A/G Ratio 0.6 (0.7-1.7); Albumin 1.6 g/dL (2.9-4.4); Alpha 1 0.3 g/dL (0.0-0.4); Alpha 2 0.7 g/dL (0.4-1.0); Beta 0.6 g/dL (0.7-1.3); Gamma 1.2 g/dL (0.4-1.8); Globulin, Total 2.8 g/dL (2.2-3.9); M-Spike Note: g/dL (Not Observed)
[2022-09-27] MEDS: Atorvastatin Calcium 40 MG TAB PO SCH (22:26)
[2022-09-27] MEDS: Insulin Glargine 30 UNITS/0.3 ML VIAL SC SCH (22:27)
[2022-09-28 07:51] LABS: Anion Gap 9 mmol/L (10-20); BUN (Urea Nitrogen) 21 mg/dL (9.8-20.1); Calc. Creatinine Clearance 26 mL/min (70-130); Calcium 7.7 mg/dL (7.8-10.44); Carbon Dioxide 24 mmol/L (22-29); Chloride 109 mmol/L (98-107); Estimated GFR 20; Glucose 165 mg/dL (70-105); Potassium 3.5 mmol/L (3.5-5.1); Sodium 138 mmol/L (136-145)
[2022-09-28 09:26] VITALS: BP 158/85; TEMP 98.1
[2022-09-28] MEDS: NIFEdipine XL 30 MG TAB PO SCH (09:33)
[2022-09-28] MEDS: Sodium Bicarbonate Tab 325 MG TAB PO SCH (09:34)
[2022-09-28] MEDS: Heparin 5,000 UNITS/ML VIAL SC SCH ×2 (09:34→16:51)
[2022-09-28] MEDS: Magnesium Oxide 400 MG TAB PO SCH (09:34)
[2022-09-28] MEDS: Metoprolol Tartrate 50 MG TAB PO SCH (09:34)
[2022-09-28] MEDS: Calcium Carbonate 500 MG ChewTAB PO SCH (09:35)
[2022-09-29 06:12] LABS: Beta-2-Microglobulin 9.7 mg/L (0.6-2.4)
[2022-09-29] MEDS ORDERED: EPOETIN ALFA-EPBX (ESRD) 10,000 UNIT/ML VIAL SC SCH (09:00)
== END 2022-09-28 19:10 | DRG 674 ==
LOC: INTOOBSV 08:29 → T4-B 08:29 → OBSVTOIN 09-23 07:53
PROVIDERS: ADMIT Family Medicine; ATTEND Family Medicine
PROC: 0JH63XZ Insertion of Tunneled Vascular Access Device into Chest Subcutaneous Tissue and Fascia, Percutaneous Approach (ICD-10-PCS; principal; 2022-09-23)
PROC: 02HV33Z Insertion of Infusion Device into Superior Vena Cava, Percutaneous Approach (ICD-10-PCS; 2022-09-23)
PROC: B548ZZA Ultrasonography of Superior Vena Cava, Guidance (ICD-10-PCS; 2022-09-23)
DX: N17.9 Acute kidney failure, unspecified (principal); E44.1 Mild protein-calorie malnutrition; I13.2 Hypertensive heart and chronic kidney disease with heart failure and with stage 5 chronic kidney disease, or end stage renal disease; I50.32 Chronic diastolic (congestive) heart failure; E87.70 Fluid overload, unspecified; N18.6 End stage renal disease; E78.5 Hyperlipidemia, unspecified; Z20.822 Contact with and (suspected) exposure to COVID-19; D63.1 Anemia in chronic kidney disease; E11.22 Type 2 diabetes mellitus with diabetic chronic kidney disease; K21.9 Gastro-esophageal reflux disease without esophagitis; Z49.01 Encounter for fitting and adjustment of extracorporeal dialysis catheter; Z88.5 Allergy status to narcotic agent; Z79.899 Other long term (current) drug therapy; Z79.51 Long term (current) use of inhaled steroids; Z79.4 Long term (current) use of insulin; Z90.710 Acquired absence of both cervix and uterus; Z68.28 Body mass index [BMI] 28.0-28.9, adult
CPT/HCPCS: 36415; 36416; 71045; 72100; 72193; 80048; 80053; 81015; 82232; 84155; 84156; 84165; 84166; 85025; 86580; 86704; 93970; C1752; C1776; J0360; J1644; J1815; J2001; J2405; J2704; J2720; J2765; J3010; Q5105; Q9967; S0028

== ENCOUNTER 2023-02-03 14:26 | Inpatient (IN) | payer MEDICARE, OTHER ==
[2023-02-03 15:51] LABS: Hemoglobin 8.7 g/dL (12.0-16.0); Mean Corpuscular HGB CONC 31.5 g/dL (32.0-36.0); Mean Corpuscular Hemoglobin 31.3 pg (27.0-31.0); Mean Corpuscular Volume 99.3 fl (78.0-98.0); Mean Platelet Volume 11.6 fL (7.4-10.4); Platelet Count 414 10x3/uL (130-400); RBC Distribution Width 17.7 % (11.5-14.5); Red Blood Cell (RBC) Count 2.78 mill/uL (4.20-5.40); White Blood Cell (WBC) Count 11.8 10x3/uL (4.8-10.8)
[2023-02-03] MEDS ORDERED: Ondansetron PF 4 MG/2 ML Vial ONE (15:55)
[2023-02-03 15:59] LABS: Delete Auto Diff?? YES; Manual Diff?? YES
[2023-02-03] MEDS ORDERED: Acetaminophen 325 MG TAB PO PRN (16:03)
[2023-02-03] MEDS ORDERED: Ondansetron PF 4 MG/2 ML Vial IVP PRN (16:03)
[2023-02-03] MEDS ORDERED: traMADol HCl 50 MG TAB PO PRN (16:04)
[2023-02-03 16:15] LABS: ALT (SGPT) 53 U/L (8-55); AST (SGOT) 48 U/L (5-34); Albumin 3.1 g/dL (3.5-5.0); Alkaline Phosphatase 540 U/L (40-110); Anion Gap 18 mmol/L (10-20); BUN (Urea Nitrogen) 69 mg/dL (9.8-20.1); Bilirubin, Total 0.3 mg/dL (0.2-1.2); Calc. Creatinine Clearance 0 mL/min (70-130); Carbon Dioxide 21 mmol/L (22-29); Chloride 101 mmol/L (98-107); Estimated GFR 9; Globulin 4.2 g/dL (2.4-3.5); Glucose 111 mg/dL (70-105); Potassium 5.5 mmol/L (3.5-5.1); Protein, Total 7.3 g/dL (6.0-8.3); Sodium 134 mmol/L (136-145)
[2023-02-03 16:31] LABS: Anisocytosis SLIGHT = 6-15 cells HPF (0-5); Band 2 % (5-11); CellaVision Operator ID LAB.MJL; Eosinophils 4 % (0-10); Lymphocytes 16 % (21-51); Macrocytosis SLIGHT = 6-15 cells HPF (0-5); Monocytes 8 % (0-10); Myelocyte 1 % (0-0); Neutrophil 67 % (42-75); Nucleated RBC (Manual Ct) 2 % (0); Ovalocytes SLIGHT = 2-5 cells HPF (0-1); Platelet Morphology Comment Platelets Increased; Polychromasia SLIGHT = 2-3 cells HPF (0-2); Total Cell Count 100
[2023-02-03 16:42] VITALS: BMI 31.2
[2023-02-03] MEDS ORDERED: HumaLOG 300 UNITS/3 ML VIAL SC PRN (16:42)
[2023-02-03] MEDS ORDERED: Dextrose 50% Abboject 50 ML SYRINGE SLOW IVP PRN (16:42)
[2023-02-03] MEDS ORDERED: Dextrose 5% in Water 1,000 ML IV PRN (16:42)
[2023-02-03] MEDS ORDERED: Dextrose 50% Abboject 50 ML SYRINGE SLOW IVP SCH (16:46)
[2023-02-03] MEDS ORDERED: Insulin Regular 300 UNITS/3 ML VIAL IVP SCH (17:00)
[2023-02-03] MEDS: Insulin Glargine 30 UNITS/0.3 ML VIAL SC SCH (20:21)
[2023-02-03] MEDS: Heparin 5,000 UNITS/ML VIAL SC SCH (20:24)
[2023-02-03] MEDS ORDERED: diphenhydrAMINE 25 MG CAP PO SCH (21:30)
[2023-02-04] MEDS: Metoprolol Tartrate 50 MG TAB PO SCH ×2 (05:21→22:01)
[2023-02-04] MEDS ORDERED: diphenhydrAMINE 25 MG CAP PO SCH (05:45)
[2023-02-04 06:55] LABS: #Basophils 0.1 thou/uL (0.0-0.2); #Eosinphils 0.4 thou/uL (0.0-0.7); #Monocytes 1.3 thou/uL (0.11-0.59); #Neutrophils 7.4 thou/uL (1.40-6.50); %Basophils 0.8 % (0.0-1.0); %Eosinophils 3.1 % (0.0-10.0); %Lymphocytes 18.5 % (21.0-51.0); %Monocytes 11.6 % (0.0-10.0); %Neutrophils 65.6 % (42.0-75.0); Hemoglobin 8.8 g/dL (12.0-16.0); Mean Corpuscular Hemoglobin 31.3 pg (27.0-31.0); Mean Platelet Volume 11.5 fL (7.4-10.4); Platelet Count 379 10x3/uL (130-400); RBC Distribution Width 18.2 % (11.5-14.5); Red Blood Cell (RBC) Count 2.81 mill/uL (4.20-5.40); White Blood Cell (WBC) Count 11.2 10x3/uL (4.8-10.8)
[2023-02-04 07:10] LABS: Mean Corpuscular Volume 104.3 fl (78.0-98.0)
[2023-02-04] MEDS: Heparin 5,000 UNITS/ML VIAL SC SCH ×3 (08:38→22:01)
[2023-02-04] MEDS ORDERED: Heparin 10,000 UNITS/ 10 ML VIAL ONE ×2 (08:51→11:52)
[2023-02-04 10:52] LABS: Calc. Creatinine Clearance 10 mL/min (70-130); Estimated GFR 8
[2023-02-04 10:53] LABS: Glucose 72 mg/dL (70-105)
[2023-02-04 11:00] LABS: Albumin 2.9 g/dL (3.5-5.0)
[2023-02-04 11:17] LABS: Chloride 102 mmol/L (98-107); Potassium 5.8 mmol/L (3.5-5.1); Sodium 136 mmol/L (136-145)
[2023-02-04 11:18] LABS: Anion Gap 15 mmol/L (10-20); Carbon Dioxide 25 mmol/L (22-29)
[2023-02-04 11:19] LABS: BUN (Urea Nitrogen) 80 mg/dL (9.8-20.1); BUN/Creatinine Ratio 13.72
[2023-02-04 11:20] LABS: Calcium 8.8 mg/dL (7.8-10.44)
[2023-02-04] MEDS ORDERED: PROPOFOL 20 ML ONE (11:39)
[2023-02-04] MEDS ORDERED: Midazolam HCl 2 mg/2 ml Vial ONE (11:39)
[2023-02-04] MEDS ORDERED: Ketamine In 0.9 % NaCl 50 MG/5 ML SYRINGE ONE (11:39)
[2023-02-04] MEDS ORDERED: fentaNYL PF 100 MCG/2 ML SYRINGE ONE (11:39)
[2023-02-04] MEDS ORDERED: Bupivacaine HCl 0.5%/Epinephrine 1:200,000/PF 30 ml Vial ONE (11:52)
[2023-02-04] MEDS ORDERED: Lidocaine 2% PF 5 ML VIAL ONE (11:52)
[2023-02-04] MEDS ORDERED: PROPOFOL 200 MG/20 ML VIAL ONE (12:18)
[2023-02-04] MEDS ORDERED: traMADol HCl 50 MG TAB PO PRN (12:57)
[2023-02-04] MEDS ORDERED: fentaNYL 50 mcg/mL 1 mL Vial ONE (13:30)
[2023-02-04] MEDS: Insulin Glargine 30 UNITS/0.3 ML VIAL SC SCH (22:01)
[2023-02-04 22:26] VITALS: TEMP 98.2
[2023-02-05] MEDS ORDERED: diphenhydrAMINE 25 MG CAP PO SCH (02:30)
[2023-02-05 06:49] LABS: #Basophils 0.1 thou/uL (0.0-0.2); #Eosinphils 0.3 thou/uL (0.0-0.7); #Monocytes 1.2 thou/uL (0.11-0.59); #Neutrophils 6.5 thou/uL (1.40-6.50); %Basophils 0.9 % (0.0-1.0); %Eosinophils 2.7 % (0.0-10.0); %Lymphocytes 17.4 % (21.0-51.0); %Monocytes 11.8 % (0.0-10.0); %Neutrophils 66.5 % (42.0-75.0); Hemoglobin 8.6 g/dL (12.0-16.0); Mean Corpuscular HGB CONC 30.8 g/dL (32.0-36.0); Mean Corpuscular Hemoglobin 31.4 pg (27.0-31.0); Mean Corpuscular Volume 101.8 fl (78.0-98.0); Mean Platelet Volume 11.1 fL (7.4-10.4); Platelet Count 434 10x3/uL (130-400); Red Blood Cell (RBC) Count 2.74 mill/uL (4.20-5.40); White Blood Cell (WBC) Count 9.8 10x3/uL (4.8-10.8)
[2023-02-05 07:28] LABS: ALT (SGPT) 55 U/L (8-55); AST (SGOT) 51 U/L (5-34); Alkaline Phosphatase 567 U/L (40-110); Anion Gap 15 mmol/L (10-20); BUN (Urea Nitrogen) 39 mg/dL (9.8-20.1); Bilirubin, Total 0.2 mg/dL (0.2-1.2); Calc. Creatinine Clearance 18 mL/min (70-130); Calcium 8.6 mg/dL (7.8-10.44); Carbon Dioxide 26 mmol/L (22-29); Chloride 98 mmol/L (98-107); Estimated GFR 15; Globulin 4.2 g/dL (2.4-3.5); Glucose 182 mg/dL (70-105); Phosphorus 4.6 mg/dL (2.3-4.7); Potassium 4.5 mmol/L (3.5-5.1); Protein, Total 7.2 g/dL (6.0-8.3); Sodium 134 mmol/L (136-145)
[2023-02-05] MEDS: Metoprolol Tartrate 50 MG TAB PO SCH (09:13)
[2023-02-05] MEDS: Heparin 5,000 UNITS/ML VIAL SC SCH ×2 (09:13→14:46)
[2023-02-05] MEDS ORDERED: NIFEdipine XL 60 MG TAB PO SCH (14:00)
[2023-02-05 14:47] VITALS: BP 173/85
[2023-02-06] MEDS ORDERED: NIFEdipine XL 60 MG TAB PO SCH (09:00)
== END 2023-02-05 16:30 | disposition home or self-care (01) | DRG 673 ==
LOC: SUATTDRO 14:26 → ERS 14:26 → T4-A 15:32 → OBSVTOIN 15:32
PROVIDERS: ADMIT Internal Medicine; ATTEND Family Medicine
PROC: 0JH63XZ Insertion of Tunneled Vascular Access Device into Chest Subcutaneous Tissue and Fascia, Percutaneous Approach (ICD-10-PCS; principal; 2023-02-04)
PROC: 02PY33Z Removal of Infusion Device from Great Vessel, Percutaneous Approach (ICD-10-PCS; 2023-02-04)
PROC: 02HV33Z Insertion of Infusion Device into Superior Vena Cava, Percutaneous Approach (ICD-10-PCS; 2023-02-04)
PROC: B5181ZA Fluoroscopy of Superior Vena Cava using Low Osmolar Contrast, Guidance (ICD-10-PCS; 2023-02-04)
PROC: 5A1D70Z Performance of Urinary Filtration, Intermittent, Less than 6 Hours Per Day (ICD-10-PCS; 2023-02-04)
DX: T82.49XA Other complication of vascular dialysis catheter, initial encounter (principal); N18.6 End stage renal disease; E87.1 Hypo-osmolality and hyponatremia; I50.42 Chronic combined systolic (congestive) and diastolic (congestive) heart failure; I13.2 Hypertensive heart and chronic kidney disease with heart failure and with stage 5 chronic kidney disease, or end stage renal disease; N25.81 Secondary hyperparathyroidism of renal origin; I42.5 Other restrictive cardiomyopathy; E78.5 Hyperlipidemia, unspecified; K21.9 Gastro-esophageal reflux disease without esophagitis; D63.1 Anemia in chronic kidney disease; E87.5 Hyperkalemia; E11.22 Type 2 diabetes mellitus with diabetic chronic kidney disease; D72.829 Elevated white blood cell count, unspecified; E88.09 Other disorders of plasma-protein metabolism, not elsewhere classified; Y83.8 Other surgical procedures as the cause of abnormal reaction of the patient, or of later complication, without mention of misadventure at the time of the procedure; E83.39 Other disorders of phosphorus metabolism; Z88.5 Allergy status to narcotic agent; Z79.899 Other long term (current) drug therapy; Z79.4 Long term (current) use of insulin; Z99.2 Dependence on renal dialysis; Z90.49 Acquired absence of other specified parts of digestive tract; Z90.710 Acquired absence of both cervix and uterus
CPT/HCPCS: 36415; 36416; 71045; 80053; 80069; 84100; 85025; 90935; 96374; 96375; C1752; G0257; G0378; J1644; J1815; J2001; J2250; J2405; J2704; J3010; J3490; J7999

== ENCOUNTER 2023-11-05 16:22 | Inpatient (IN) | payer OTHER ==
[2023-11-05] MEDS ORDERED: Morphine 4 MG/ML VIAL ONE (17:21)
[2023-11-05] MEDS ORDERED: Ondansetron PF 4 MG/2 ML Vial ONE (17:21)
[2023-11-05 20:15] LABS: #Eosinphils 0.1 thou/uL (0.0-0.7); #Monocytes 0.8 thou/uL (0.11-0.59); #Neutrophils 7.7 thou/uL (1.40-6.50); %Basophils 0.4 % (0.0-1.0); %Eosinophils 1.1 % (0.0-10.0); %Lymphocytes 15.8 % (21.0-51.0); %Monocytes 7.9 % (0.0-10.0); %Neutrophils 74.4 % (42.0-75.0); Hematocrit 36.1 % (36.0-47.0); Hemoglobin 11.6 g/dL (12.0-16.0); Mean Corpuscular HGB CONC 32.1 g/dL (32.0-36.0); Mean Corpuscular Hemoglobin 33.2 pg (27.0-31.0); Mean Corpuscular Volume 103.4 fl (78.0-98.0); Mean Platelet Volume 12.1 fL (7.4-10.4); Platelet Count 186 10x3/uL (130-400); RBC Distribution Width 15.5 % (11.5-14.5); Red Blood Cell (RBC) Count 3.49 mill/uL (4.20-5.40); White Blood Cell (WBC) Count 10.3 10x3/uL (4.8-10.8)
[2023-11-05 20:39] LABS: ALT (SGPT) 80 U/L (8-55); AST (SGOT) 70 U/L (5-34); Albumin 3.2 g/dL (3.5-5.0); Alkaline Phosphatase 516 U/L (40-110); Anion Gap 16 mmol/L (10-20); BUN (Urea Nitrogen) 49 mg/dL (9.8-20.1); Bilirubin, Total 0.4 mg/dL (0.2-1.2); Calc. Creatinine Clearance 0 mL/min (70-130); Calcium 9.1 mg/dL (7.8-10.44); Carbon Dioxide 23 mmol/L (22-29); Chloride 99 mmol/L (98-107); Estimated GFR 10; Globulin 3.7 g/dL (2.4-3.5); Glucose 165 mg/dL (70-105); Potassium 4.1 mmol/L (3.5-5.1); Protein, Total 6.9 g/dL (6.0-8.3); Sodium 134 mmol/L (136-145)
[2023-11-05 20:42] LABS: Troponin I 0.057 ng/mL (< 0.028)
[2023-11-05] MEDS ORDERED: Acetaminophen 325 MG TAB PO PRN (21:47)
[2023-11-05] MEDS ORDERED: Glucagon 1 MG/ML KIT IM PRN (22:08)
[2023-11-05] MEDS ORDERED: HumaLOG 300 UNITS/3 ML VIAL SC PRN (22:08)
[2023-11-05] MEDS ORDERED: Dextrose 50% Abboject 50 ML SYRINGE SLOW IVP PRN (22:08)
[2023-11-05] MEDS ORDERED: Morphine 4 MG/ML VIAL SLOW IVP PRN (23:00)
[2023-11-05 23:19] LABS: Troponin I 0.063 ng/mL (< 0.028)
[2023-11-06 01:11] VITALS: BMI 22.4
[2023-11-06 06:34] LABS: #Basophils 0.1 thou/uL (0.0-0.2); #Eosinphils 0.2 thou/uL (0.0-0.7); #Monocytes 0.9 thou/uL (0.11-0.59); #Neutrophils 6.8 thou/uL (1.40-6.50); %Basophils 0.5 % (0.0-1.0); %Eosinophils 1.5 % (0.0-10.0); %Lymphocytes 19.1 % (21.0-51.0); %Neutrophils 69.6 % (42.0-75.0); Hematocrit 37.9 % (36.0-47.0); Hemoglobin 12.4 g/dL (12.0-16.0); Mean Corpuscular HGB CONC 32.7 g/dL (32.0-36.0); Mean Corpuscular Hemoglobin 33.3 pg (27.0-31.0); Mean Corpuscular Volume 101.9 fl (78.0-98.0); Mean Platelet Volume 12.4 fL (7.4-10.4); Platelet Count 190 10x3/uL (130-400); RBC Distribution Width 15.3 % (11.5-14.5); Red Blood Cell (RBC) Count 3.72 mill/uL (4.20-5.40); White Blood Cell (WBC) Count 9.8 10x3/uL (4.8-10.8)
[2023-11-06 06:56] LABS: ALT (SGPT) 68 U/L (8-55); AST (SGOT) 42 U/L (5-34); Albumin 3.1 g/dL (3.5-5.0); Alkaline Phosphatase 476 U/L (40-110); Anion Gap 14 mmol/L (10-20); BUN (Urea Nitrogen) 51 mg/dL (9.8-20.1); Bilirubin, Total 0.5 mg/dL (0.2-1.2); Calc. Creatinine Clearance 10 mL/min (70-130); Calcium 9.3 mg/dL (7.8-10.44); Carbon Dioxide 29 mmol/L (22-29); Chloride 98 mmol/L (98-107); Estimated GFR 9; Globulin 3.6 g/dL (2.4-3.5); Glucose 102 mg/dL (70-105); Potassium 4.2 mmol/L (3.5-5.1); Protein, Total 6.7 g/dL (6.0-8.3); Sodium 137 mmol/L (136-145)
[2023-11-06] MEDS ORDERED: HYDROcodone/Acetaminophen 5/325 mg Tablet PO PRN (09:11)
[2023-11-06] MEDS ORDERED: Heparin 10,000 UNITS/ 10 ML VIAL ONE (09:29)
[2023-11-06] MEDS ORDERED: HYDROcodone/Acetaminophen 5/325 mg Tablet PO SCH (09:30)
[2023-11-06] MEDS: HYDROcodone/Acetaminophen 5/325 mg Tablet PO PRN (09:51)
[2023-11-06] MEDS: Heparin 5,000 UNITS/ML VIAL SC SCH (09:53)
[2023-11-06] MEDS: Acetaminophen 325 MG TAB PO SCH (09:58)
[2023-11-06 11:29] LABS: Troponin I 0.036 ng/mL (< 0.028)
[2023-11-06] MEDS: Metoprolol Tartrate 50 MG TAB PO SCH (18:13)
[2023-11-06] MEDS: glipiZIDE 5 MG TAB PO SCH (21:43)
[2023-11-06] MEDS: Insulin Glargine 30 UNITS/0.3 ML VIAL SC SCH (21:43)
[2023-11-07 04:34] LABS: #Basophils 0.1 thou/uL (0.0-0.2); #Eosinphils 0.2 thou/uL (0.0-0.7); #Neutrophils 5.2 thou/uL (1.40-6.50); %Basophils 0.7 % (0.0-1.0); %Eosinophils 2.4 % (0.0-10.0); %Lymphocytes 20.1 % (21.0-51.0); %Monocytes 12.2 % (0.0-10.0); %Neutrophils 64.1 % (42.0-75.0); Hematocrit 35.4 % (36.0-47.0); Hemoglobin 11.1 g/dL (12.0-16.0); Mean Corpuscular HGB CONC 31.4 g/dL (32.0-36.0); Mean Corpuscular Hemoglobin 32.1 pg (27.0-31.0); Mean Corpuscular Volume 102.3 fl (78.0-98.0); Mean Platelet Volume 11.8 fL (7.4-10.4); Platelet Count 180 10x3/uL (130-400); RBC Distribution Width 15.2 % (11.5-14.5); Red Blood Cell (RBC) Count 3.46 mill/uL (4.20-5.40)
[2023-11-07 05:01] LABS: ALT (SGPT) 67 U/L (8-55); AST (SGOT) 57 U/L (5-34); Albumin 2.8 g/dL (3.5-5.0); Alkaline Phosphatase 496 U/L (40-110); Anion Gap 11 mmol/L (10-20); BUN (Urea Nitrogen) 22 mg/dL (9.8-20.1); Bilirubin, Total 0.4 mg/dL (0.2-1.2); Calc. Creatinine Clearance 17 mL/min (70-130); Calcium 8.5 mg/dL (7.8-10.44); Carbon Dioxide 30 mmol/L (22-29); Chloride 98 mmol/L (98-107); Estimated GFR 16; Globulin 3.4 g/dL (2.4-3.5); Glucose 130 mg/dL (70-105); Potassium 3.8 mmol/L (3.5-5.1); Protein, Total 6.2 g/dL (6.0-8.3); Sodium 135 mmol/L (136-145)
[2023-11-07 05:17] LABS: HBSAB Concentration Less than 8.00 mIU/mL; Hep B Core Total Ab Non-Reactive (NonReactive); Hep B Core Total Index 0.03 S/CO (0-0.79); Hep B Surf AB Non-Reactive (NonReactive); Hep B Surf Ag Non-Reactive S/CO (NonReactive); Hep C IgG Ab Non-Reactive S/CO (NonReactive); Hep C Index 0.04 S/CO (0-0.79)
[2023-11-07] MEDS: Atorvastatin Calcium 20 MG TAB PO SCH (09:20)
[2023-11-07] MEDS: PARoxetine 20 MG TAB PO SCH (09:21)
[2023-11-07] MEDS: Magnesium Oxide 400 MG TAB PO SCH (09:21)
[2023-11-07] MEDS: HYDROcodone/Acetaminophen 5/325 mg Tablet PO SCH (12:27)
[2023-11-07] MEDS: Dextrose 5% in Water 1,000 ML IV PRN (19:00)
[2023-11-07] MEDS ORDERED: Ondansetron ODT 4 MG TAB PO PRN (22:21)
[2023-11-07] MEDS ORDERED: Ondansetron PF 4 MG/2 ML Vial IVP PRN (22:21)
[2023-11-07] MEDS: Ondansetron ODT 4 MG TAB PO PRN (23:24)
[2023-11-08 05:00] LABS: #Eosinphils 0.1 thou/uL (0.0-0.7); #Monocytes 0.8 thou/uL (0.11-0.59); #Neutrophils 4.3 thou/uL (1.40-6.50); %Basophils 0.6 % (0.0-1.0); %Eosinophils 1.8 % (0.0-10.0); %Lymphocytes 22.5 % (21.0-51.0); %Monocytes 11.2 % (0.0-10.0); %Neutrophils 63.2 % (42.0-75.0); Hematocrit 36.8 % (36.0-47.0); Hemoglobin 11.8 g/dL (12.0-16.0); Mean Corpuscular HGB CONC 32.1 g/dL (32.0-36.0); Mean Corpuscular Hemoglobin 32.5 pg (27.0-31.0); Mean Corpuscular Volume 101.4 fl (78.0-98.0); Mean Platelet Volume 12.2 fL (7.4-10.4); Platelet Count 183 10x3/uL (130-400); RBC Distribution Width 14.9 % (11.5-14.5); Red Blood Cell (RBC) Count 3.63 mill/uL (4.20-5.40); White Blood Cell (WBC) Count 6.9 10x3/uL (4.8-10.8)
[2023-11-08 05:47] LABS: ALT (SGPT) 76 U/L (8-55); AST (SGOT) 63 U/L (5-34); Alkaline Phosphatase 508 U/L (40-110); Anion Gap 11 mmol/L (10-20); BUN (Urea Nitrogen) 36 mg/dL (9.8-20.1); Bilirubin, Total 0.7 mg/dL (0.2-1.2); Calc. Creatinine Clearance 13 mL/min (70-130); Calcium 8.4 mg/dL (7.8-10.44); Carbon Dioxide 27 mmol/L (22-29); Estimated GFR 12; Globulin 3.5 g/dL (2.4-3.5); Glucose 64 mg/dL (70-105); Potassium 4.6 mmol/L (3.5-5.1); Protein, Total 6.2 g/dL (6.0-8.3)
[2023-11-08 06:24] LABS: Albumin 2.7 g/dL (3.5-5.0); Chloride 92 mmol/L (98-107); Sodium 125 mmol/L (136-145)
[2023-11-08] MEDS: Ondansetron PF 4 MG/2 ML Vial IVP SCH (06:29)
[2023-11-08] MEDS ORDERED: HYDROcodone/Acetaminophen 10/325 mg Tablet PO PRN (09:15)
[2023-11-08] MEDS ORDERED: Heparin 10,000 UNITS/ 10 ML VIAL ONE (10:02)
[2023-11-08] MEDS: HYDROcodone/Acetaminophen 10/325 mg Tablet PO PRN (13:32)
[2023-11-08] MEDS: Insulin Glargine 30 UNITS/0.3 ML VIAL SC SCH (22:19)
[2023-11-09 05:13] LABS: Hematocrit 37.3 % (36.0-47.0); Hemoglobin 12.2 g/dL (12.0-16.0); Manual Diff?? YES; Mean Corpuscular HGB CONC 32.7 g/dL (32.0-36.0); Mean Corpuscular Hemoglobin 33.5 pg (27.0-31.0); Mean Corpuscular Volume 102.5 fl (78.0-98.0); Mean Platelet Volume 12.2 fL (7.4-10.4); Platelet Count 211 10x3/uL (130-400); RBC Distribution Width 15.1 % (11.5-14.5); Red Blood Cell (RBC) Count 3.64 mill/uL (4.20-5.40); White Blood Cell (WBC) Count 7.3 10x3/uL (4.8-10.8)
[2023-11-09 05:52] LABS: ALT (SGPT) 74 U/L (8-55); AST (SGOT) 56 U/L (5-34); Albumin 2.7 g/dL (3.5-5.0); Alkaline Phosphatase 496 U/L (40-110); Anion Gap 12 mmol/L (10-20); BUN (Urea Nitrogen) 23 mg/dL (9.8-20.1); Bilirubin, Total 0.5 mg/dL (0.2-1.2); Calc. Creatinine Clearance 17 mL/min (70-130); Calcium 8.2 mg/dL (7.8-10.44); Carbon Dioxide 27 mmol/L (22-29); Chloride 93 mmol/L (98-107); Estimated GFR 17; Globulin 3.4 g/dL (2.4-3.5); Glucose 129 mg/dL (70-105); Potassium 4.1 mmol/L (3.5-5.1); Protein, Total 6.1 g/dL (6.0-8.3); Sodium 128 mmol/L (136-145)
[2023-11-09 06:33] LABS: Delete Auto Diff?? YES
[2023-11-09 07:23] LABS: Band 4 % (5-11); CellaVision Operator ID LAB.KW3; Large Platelets 27.3 % (0-5); Lymphocytes 20 % (21-51); Monocytes 9 % (0-10); Neutrophil 67 % (42-75); Nucleated RBC (Manual Ct) 1 % (0); Platelet Adequacy Comment Platelets Normal; Polychromasia SLIGHT = 2-3 cells HPF (0-2); Total Cell Count 99
[2023-11-09] MEDS: HYDROcodone/Acetaminophen 7.5/325 mg Tablet PO SCH (10:30)
[2023-11-09] MEDS: HumaLOG 300 UNITS/3 ML VIAL SC PRN (14:46)
[2023-11-09 16:57] VITALS: BP 113/68; TEMP 97.5
== END 2023-11-09 19:32 | disposition swing bed (61) | DRG 562 ==
LOC: ERS 16:22 → ERHOLD 22:05 → 2SE 11-06 09:40
PROVIDERS: ADMIT Emergency Medicine; ATTEND Emergency Medicine
PROC: 5A1D70Z Performance of Urinary Filtration, Intermittent, Less than 6 Hours Per Day (ICD-10-PCS; principal; 2023-11-05)
DX: S42.252A Displaced fracture of greater tuberosity of left humerus, initial encounter for closed fracture (principal); N18.6 End stage renal disease; S22.41XA Multiple fractures of ribs, right side, initial encounter for closed fracture; I13.2 Hypertensive heart and chronic kidney disease with heart failure and with stage 5 chronic kidney disease, or end stage renal disease; I50.42 Chronic combined systolic (congestive) and diastolic (congestive) heart failure; E87.1 Hypo-osmolality and hyponatremia; R09.02 Hypoxemia; E88.09 Other disorders of plasma-protein metabolism, not elsewhere classified; W18.30XA Fall on same level, unspecified, initial encounter; E11.22 Type 2 diabetes mellitus with diabetic chronic kidney disease; E78.5 Hyperlipidemia, unspecified; K21.9 Gastro-esophageal reflux disease without esophagitis; R53.81 Other malaise; R74.01 Elevation of levels of liver transaminase levels; R79.89 Other specified abnormal findings of blood chemistry; D63.1 Anemia in chronic kidney disease; Z90.89 Acquired absence of other organs; Z90.710 Acquired absence of both cervix and uterus; Z99.2 Dependence on renal dialysis
CPT/HCPCS: 36415; 36416; 71045; 71046; 71250; 80053; 84484; 85025; 86704; 90935; 93005; 93010; 96374; 96375; G0257; J1644; J1815; J2270; J2405; J7070; Q0162

== ENCOUNTER 2024-02-13 20:46 | Emergency (ER) | payer MEDICARE, OTHER ==
[2024-02-13] MEDS ORDERED: HYDROcodone/Acetaminophen 5/325 mg Tablet ONE (22:30)
[2024-02-13] MEDS ORDERED: Ondansetron ODT 4 MG TAB ONE (22:35)
== END 2024-02-14 00:10 ==
LOC: ERS 20:46
DX: S42.211A Unspecified displaced fracture of surgical neck of right humerus, initial encounter for closed fracture (principal); S42.201A Unspecified fracture of upper end of right humerus, initial encounter for closed fracture; S22.41XA Multiple fractures of ribs, right side, initial encounter for closed fracture; I13.2 Hypertensive heart and chronic kidney disease with heart failure and with stage 5 chronic kidney disease, or end stage renal disease; E11.22 Type 2 diabetes mellitus with diabetic chronic kidney disease; N18.6 End stage renal disease; I50.9 Heart failure, unspecified; X50.0XXA Overexertion from strenuous movement or load, initial encounter; Y93.89 Activity, other specified; Z99.2 Dependence on renal dialysis
CPT/HCPCS: 94760; Q0162

== ENCOUNTER 2024-02-19 10:54 | Emergency (ER) | payer OTHER ==
[2024-02-19] MEDS ORDERED: Morphine 4 MG/ML VIAL ONE (12:33)
== END 2024-02-19 14:29 | disposition home or self-care (01) ==
LOC: ERS 10:54
DX: S42.211A Unspecified displaced fracture of surgical neck of right humerus, initial encounter for closed fracture (principal); S42.201A Unspecified fracture of upper end of right humerus, initial encounter for closed fracture; S22.41XA Multiple fractures of ribs, right side, initial encounter for closed fracture; I13.0 Hypertensive heart and chronic kidney disease with heart failure and stage 1 through stage 4 chronic kidney disease, or unspecified chronic kidney disease; E11.22 Type 2 diabetes mellitus with diabetic chronic kidney disease; N18.9 Chronic kidney disease, unspecified; I50.9 Heart failure, unspecified; E78.00 Pure hypercholesterolemia, unspecified; K21.9 Gastro-esophageal reflux disease without esophagitis; M81.0 Age-related osteoporosis without current pathological fracture; M40.209 Unspecified kyphosis, site unspecified; W18.30XA Fall on same level, unspecified, initial encounter; Z99.2 Dependence on renal dialysis
CPT/HCPCS: 93005; 96372; J2270

== ENCOUNTER 2024-02-22 17:05 | Emergency (ER) | payer OTHER ==
[~2024-02-22 17:05] MED LIST: Amiodarone 150 MG/3 ML VIAL ONE; Atropine Sulfate 1 mg/10 ml Syringe ONE; Calcium Chloride 1 GM/10 ML Abboject SYRINGE ONE; EPINEPHrine 1 MG/10 ML Abboject SYRINGE ONE; Sodium Bicarb 50 MEQ/50 ML Abboject 8.4% SYRINGE ONE
[2024-02-22] MEDS ORDERED: EPINEPHrine 1 MG/ML VIAL ONE (17:13)
[2024-02-22 17:27] LABS: Actual Bicarbonate (HCO3v) 23.4 mEq/L (22-28); Base Excess -10.7 mEq/L (-2.0 to +3.0); Calcium, Ionized (venous) 1.45 mmol/L (1.16-1.32); Chloride (VBG) 102 mmol/L (98-106); Hematocrit-VBG 31 % (36.0-47.0); Hemoglobin (Hb) 10.6 g/dL (11.7-16.0); Sodium 142 mmol/L (133-146)
[2024-02-22 17:35] LABS: pH (venous) 6.912 (7.32-7.43)
[2024-02-22 17:36] LABS: Potassium (VBG) 7.38 mmol/L (3.70-5.30)
== END 2024-02-22 17:21 | disposition expired ==
LOC: ERS 17:05
DX: I46.9 Cardiac arrest, cause unspecified (principal)
CPT/HCPCS: 82805; 92950; 96374; 96375; 99285; J0171 ×2; J0282; J0461